=== PATIENT | female | born 1955 | race Caucasian/White ===

== ENCOUNTER 2021-09-21 11:50 | Outpatient (CLI) | payer OTHER, SELFPAY ==
[2021-09-21 19:10] LABS: Hematocrit 42.2 % (37.0-47.0); Hemoglobin 13.6 g/dL (12.0-15.0); Mean Corpuscular HGB Conc 32.2 g/dl (32-36); Mean Corpuscular Hemoglobin 31.9 pg (26-34); Mean Corpuscular Volume 99.1 fl (80-100); Mean Platelet Volume 10.5 fl (7.4-10.4); Platelet Count Result 219 k/mm3 (150-375); Red Blood Count 4.26 M/mm3 (4.2-5.4); Red Cell Distribution Width 12.7 % (11.5-14.5); White Blood Count 8.4 K/mm3 (4.5-10.0)
[2021-09-21 19:20] LABS: Alanine Aminotransferase 20 U/L (6-35); Alkaline Phosphatase 87 U/L (38-126); Anion Gap 7 mmol/L (8-16); Aspartate Amino Transferase 49 U/L (14-36); Bilirubin,Total 0.8 mg/dL (0.2-1.3); Blood Urea Nitrogen 12 mg/dL (7-17); Calcium 9.6 mg/dL (8.4-10.2); Carbon Dioxide 27 mmol/L (22-30); Chloride 103 mmol/L (98-107); Cholesterol 120 mg/dL (0-200); Estimated Glomerular Filt Rate > 60; Glucose 131 mg/dL (65-110); HDL Direct 33 mg/dL; Potassium 4.3 mmol/L (3.4-5.0); Sodium 137 mmol/L (137-145); Triglycerides 140 mg/dL (<150)
[2021-09-21 19:31] LABS: LDL Cholesterol Direct 54 mg/dL
[2021-09-21 19:35] LABS: NT Pro B Type Natriuretic Pept 1970 pg/mL (5-100)
[2021-09-21 19:56] LABS: Thyroid Stimulating Hormone 0.382 uIU/mL (0.465-4.680)
== END 2021-09-21 11:51 | disposition home or self-care (01) ==
PROVIDERS: PCP Family Medicine; Visit Provider Family Medicine
DX: Z00.00 Encounter for general adult medical examination without abnormal findings (principal); E03.9 Hypothyroidism, unspecified; I25.10 Atherosclerotic heart disease of native coronary artery without angina pectoris; I25.2 Old myocardial infarction; I50.9 Heart failure, unspecified; K21.9 Gastro-esophageal reflux disease without esophagitis; I10 Essential (primary) hypertension; K58.9 Irritable bowel syndrome, unspecified
CPT/HCPCS: 36415; 80053; 80061; 83880; 84443; 85027

== ENCOUNTER 2021-10-10 09:30 | Outpatient (CLI) | payer OTHER, SELFPAY ==
[2021-10-10 19:49] LABS: NT Pro B Type Natriuretic Pept 1050 pg/mL (5-100)
[2021-10-10 20:26] LABS: Free T4 Free Thyroxine 1.22 ng/mL (0.78-2.19)
[2021-10-10 20:57] LABS: Hemoglobin A1C 6.3 % (<5.7)
[2021-10-12 20:22] LABS: Triiodothyronine T3 Free 2.6 pg/mL (2.3-4.2)
== END 2021-10-10 09:31 | disposition home or self-care (01) ==
PROVIDERS: PCP Family Medicine; Visit Provider Family Medicine
DX: E03.9 Hypothyroidism, unspecified (principal); R73.09 Other abnormal glucose; I50.9 Heart failure, unspecified
CPT/HCPCS: 36415; 83036; 83880; 84439; 84443; 84481

== ENCOUNTER 2021-11-25 08:05 | Outpatient (CLI) | payer OTHER, SELFPAY ==
--- NOTE | 2021-11-25 08:19 | ECHO_ITS ---
Patient Info Name: Shakira Starr Age: 66 years : 1955 Gender: Female Ht: 62 in Wt: 224 lbs BSA: 2.16 m2 HR: 96 bpm BP: 143 / 93 mmHg Heart Rhythm: Sinus Rhythm Technical Quality: Fair Exam Date: 11/25/2021 9:26 AM Exam Location: [facility] Patient Status: Outpatient Admit Date: 11/25/2021 Staff Ordering Physician: Milo Avalos DO Molasses And Caramel Operator: Frannie Bonilla RDCS Attending Provider: Sahil Hinds MD Exam Type: CA echo doppler color flow Study Info Indications Z95.2 - Presence of prosthetic heart valve Complete two-dimensional, color flow and Doppler transthoracic echocardiogram is performed. Summary 1. Complete two-dimensional, color flow and Doppler transthoracic echocardiogram is performed. 2. Left ventricular chamber dimension is moderately enlarged. 3. Anteroseptal/anterior kamara are severely hypokinetic compared to other wall segments. 4. There is mildly increased left ventricular wall thickness. 5. Left ventricular systolic function is globally severely reduced, estimated at 30-35%. 6. The left ventricular diastolic function is grade I diastolic dysfunction. 7. E/e' 10 is mildly elevated. 8. Right ventricular systolic function is reduced based on abnormal TAPSE 0.9 cm. 9. The bioprosthetic aortic valve is not well visualized. 10. 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 The dimensionless index is 0.25, right at threshold for severe aortic stenosis. Consider PRINCE for further evaluation if clinically indicated. Left Ventricle E/e' 10 is mildly elevated. Left ventricular systolic function is globally severely reduced, estimated at 30-35%. Anteroseptal/anterior kamara are severely hypokinetic compared to other wall segments. Left ventricular chamber dimension is moderately enlarged. There is mildly increased left ventricular wall thickness. The left ventricular diastolic function is grade I diastolic dysfunction. Right Ventricle Right ventricular systolic function is reduced based on abnormal TAPSE 0.9 cm. Right ventricular chamber dimension is not well visualized. Left Atria Left atrial chamber dimension is normal. Right Atria Right atrial chamber dimension is normal. 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 The dimensionless index is 0.25, right at threshold for severe aortic stenosis. Consider PRINCE for further evaluation if clinically indicated. The bioprosthetic aortic valve is not well visualized. There is no regurgitation of the bioprosthetic aortic valve. Pulmonic Valve There is no pulmonic regurgitation. Mitral Valve There is no mitral valve stenosis. There is no mitral valve regurgitation. Tricuspid Valve There is no tricuspid valve regurgitation. Pericardium/Pleural There is no pericardial effusion. Inferior Vena Cava Normal inferior vena cava with >50% collapse upon inspiration consistent with normal right atrial pressure, 5 mmHg. Aorta The aortic root size at the sinus of Valsalva is normal. Left Ventricular Outflow Tract Name Value Normal LVOT 2D
--- NOTE | 2021-11-25 11:57 | WPDPFTINT ---
PFT Procedure Performed PFT Procedure Performed Spirometry with Pre/Post Bronchodilator Diffusing Cap (DLCO) Flow Vol Loop PFT Interpretation Lung volumes were not measure as patient could not perform the maneuver. Spirometry showed normal expiratory flow rates and a normal FEV1 to FVC ratio of 80%. Following administration of a bronchodilator there was significant increase in the FEV1. Lung diffusion capacity is within the normal range at 81% predicted. The flow volume loop is unremarkable. Impression: Spirometry, lung diffusion capacity within normal range
== END 2021-11-25 08:06 | disposition home or self-care (01) ==
PROVIDERS: PCP Family Medicine; Visit Provider Internal Medicine Pulmonary Disease
DX: R05.9 Cough, unspecified (principal); Z95.2 Presence of prosthetic heart valve
CPT/HCPCS: 93306; 94060; 94726; 94729

== ENCOUNTER 2022-01-10 11:56 | Outpatient (CLI) | payer OTHER, SELFPAY ==
--- NOTE | ~2022-01-10 | XR_ITS ---
XR sternum min 2V 01/10/2022 12:21 Indication: Chest pain since open heart surgery Procedure: 2 views of the sternum Comparison: No prior studies for comparison. Findings: There are median sternotomy wires for CABG. The inferior wire is fractured. Cardiomegaly. T here is demineralization. No acute sternal fracture is definitely seen, although evaluation limited d ue to demineralization. Impression: 1: No acute sternal fracture. Fractured inferior sternal wire. Reviewed, dictated and finalized at location B. Impression: 1: No acute sternal fracture. Fractured inferior sternal wire.
--- NOTE | ~2022-01-10 | XR_ITS ---
[XR_RIBSBI_CR ] INDICATION: Bilateral rib pain TECHNIQUE: Frontal projection of the upper ribs, frontal projection of the lower ribs, oblique projec tion of all the ribs, frontal inspiratory chest x-ray for interpretation. FINDINGS: There are no displaced rib fractures identified. There are no soft tissue abnormality see n. The lungs are clear. There are scattered calcified granulomas of the lungs. IMPRESSION: 1:No acute displaced rib fractures. Reviewed, dictated and finalized at location B.
== END 2022-01-10 11:57 | disposition home or self-care (01) ==
LOC: ANHBWCIMG 11:57
PROVIDERS: PCP Family Medicine; Visit Provider Family Medicine
DX: R07.89 Other chest pain (principal); T85.898A Other specified complication of other internal prosthetic devices, implants and grafts, initial encounter
CPT/HCPCS: 71110; 71120

== ENCOUNTER 2022-01-28 11:11 | Outpatient (CLI) | payer OTHER, SELFPAY ==
--- NOTE | ~2022-01-28 | CT_ITS ---
EXAMINATION: CT diagnostic chest wo con DATE: 01/28/2022 11:30 INDICATION: Chest pain TECHNIQUE: Computed tomography (CT) of the chest was performed without intravenous contrast. Automate d exposure control and iterative reconstruction technique were employed. Exam dose: 516.51 mGy-cm to vinny exam DLP. COMPARISON: None FINDINGS: Status post sternotomy and aortic valve replacement. Normal heart size. Coronary artery calcifications. There is thoracic aortic and great vessel calcification. No thoracic aortic aneurysm. No hilar or mediastinal mass lesion or lymphadenopathy. No pulmonary infiltrate or consolidation or pulmonary mass lesion. Normal morphology of the adrenal glands. Diffuse idiopathic skeletal hyperostosis of the thoracic spine. IMPRESSION: Status post aortic valve replacement Reviewed, dictated and finalized at Location A. Reviewed, dictated and finalized at location A. R RECONNAISSANCE SPECIALIST
== END 2022-01-28 11:12 | disposition home or self-care (01) ==
PROVIDERS: PCP Family Medicine; Visit Provider Family Medicine
DX: R07.89 Other chest pain (principal); Z95.2 Presence of prosthetic heart valve
CPT/HCPCS: 71250

== ENCOUNTER 2022-04-12 14:36 | Outpatient (CLI) | payer MEDICARE, SELFPAY ==
[2022-04-12 19:10] LABS: Alanine Aminotransferase 27 U/L (6-35); Albumin Level 4.1 g/dL (3.5-5.1); Alkaline Phosphatase 74 U/L (38-126); Anion Gap 7 mmol/L (8-16); Aspartate Amino Transferase 33 U/L (14-36); Bilirubin,Total 0.9 mg/dL (0.2-1.3); Blood Urea Nitrogen 12 mg/dL (7-17); Calcium 9.5 mg/dL (8.4-10.2); Carbon Dioxide 30 mmol/L (22-30); Chloride 101 mmol/L (98-107); Estimated Glomerular Filt Rate > 60; Glucose 117 mg/dL (65-110); Potassium 4.1 mmol/L (3.4-5.0); Sodium 138 mmol/L (137-145)
[2022-04-12 19:32] LABS: Hemoglobin A1C 6.7 % (<5.7)
== END 2022-04-12 14:37 | disposition home or self-care (01) ==
PROVIDERS: PCP Family Medicine; Visit Provider Family Medicine
DX: R73.03 Prediabetes (principal)
CPT/HCPCS: 36415; 80053; 83036

== ENCOUNTER 2022-06-09 02:30 | Day surgery (SDC) | payer MEDICARE, SELFPAY ==
[2022-06-08 12:50] VITALS: BMI 40.6
[2022-06-09] VITALS (11 sets, daily range): BP systolic 114–170; BP diastolic 59–89; PULSE 75–91; RESP 12–20; TEMP 36.9; O2SAT 95–100; BMI 42.6
--- NOTE | 2022-06-09 | ECHO_ITS ---
Patient Info Name: Shakira Starr Age: 66 years : 1955 Gender: Female Ht: 62 in Wt: 222 lbs BSA: 2.15 m2 HR: 103 bpm BP: 153 / 89 mmHg Technical Quality: Good Exam Date: 06/09/2022 9:21 AM Exam Location: [facility] Exam Room: [facility] Patient Status: Outpatient Admit Date: 06/09/2022 Staff Ordering Physician: Milo Avalos DO Last Putter Away: Jamila De Souza RDCS Attending Provider: Milo Avalos DO Referring Physician: Robbie BENNETT; Exam Type: CA echo transesophageal Study Info Indications - HX/O CAD AORTIC VALVE REPLACEMENT Complete two-dimensional, color flow and Doppler transesophageal echocardiogram is performed with contrast to opacify the left ventrical and to improve the deliniation of the left ventrical endocarial boarders. Procedure Details Risks/benefits/alternative to PRINCE discuss with patient and she is agreeable to procedure. She is monitored electrocardiographically, vitals which showed sinus rhythm, HR 70 bpm, BP 135/70 mmHg, >95% pulse ox. Cetacaine spray x 2 to posterior oropharynx. Versed 2 mg and Fenanyl 50 mcg IV given for conscious sedation. PRINCE advanced and she swallowed probe without incident. Multiple images obtained at various levels in esophagus. Agitated saline injection x 1. PRINCE probe withdrawn and no bleed noted on probe tip. No complications. Patient tolerated procedure well. Summary 1. Transesophageal echocardiogram. 2. Left ventricular systolic function is severely globally reduced with an ejection fraction of 25-30% by visual estimation. 3. The left ventricular diastolic function is indeterminate as it was not assessed. 4. Left ventricular chamber dimension is severely enlarged. 5. Right ventricular systolic function is reduced. 6. Left atrial chamber dimension is moderately enlarged. 7. There is severe bioprosthetic aortic valve stenosis by planimetry of valve area 0.6-0.8 cm2. Valve opening and closing appears normal without any obstruction. There is turbulent flow suggestive of patient-valve mismatch. 8. There is moderate mitral valve regurgitation. 9. There is mild tricuspid valve regurgitation. Left Ventricle Left ventricular systolic function is severely globally reduced with an ejection fraction of 25-30% by visual estimation. The left ventricular diastolic function is indeterminate as it was not assessed. Left ventricular chamber dimension is severely enlarged. Right Ventricle Right ventricular chamber dimension is normal. Right ventricular systolic function is reduced. Left Atria Left atrial chamber dimension is moderately enlarged. Right Atria Right atrial chamber dimension is normal. Atrial Appendage There is no thrombus visualized in the left atrial appendage. 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 Valve opening and closing appears normal without any obstruction. There is turbulent flow suggestive of patient-valve mismatch. There is no regurgitation of the bioprosthetic aortic valve. Pulmonic Valve There is no pulmonic regurgitation. Mitral Valve There is no mitral valve stenosis. There is moderate mitral valve regurgitation. Tricuspid Valve RVSP is not measured. There is mild tricuspid valve regurgitation. Pericardium/Pleural There is no pericardial effusion. Inferior Vena Cava Inferior vena cava is not well visualized. Aorta The aortic root size at the sinus of Valsalva is normal. Report Signatures Electronically si
[2022-06-09] MEDS: SODIUM CHLORIDE 0.9% IV 1,000 ML 30 ML IV CONT (08:45)
== END 2022-06-09 11:05 | disposition home or self-care (01) ==
PROVIDERS: PCP Family Medicine; Visit Provider Internal Medicine Cardiovascular Disease
PROC: (CPT 93312; principal; 2022-06-09 09:00)
DX: T82.857A Stenosis of other cardiac prosthetic devices, implants and grafts, initial encounter (principal); Y83.8 Other surgical procedures as the cause of abnormal reaction of the patient, or of later complication, without mention of misadventure at the time of the procedure; I34.0 Nonrheumatic mitral (valve) insufficiency; I36.1 Nonrheumatic tricuspid (valve) insufficiency; I25.810 Atherosclerosis of coronary artery bypass graft(s) without angina pectoris; Z95.1 Presence of aortocoronary bypass graft; Z95.2 Presence of prosthetic heart valve; I11.9 Hypertensive heart disease without heart failure; G47.10 Hypersomnia, unspecified
CPT/HCPCS: 93312; 93320; 93325; J2250; J3010; J7030

== ENCOUNTER 2022-07-31 15:18 | Outpatient (CLI) | payer MEDICARE, SELFPAY ==
[2022-07-31 23:39] LABS: Hemoglobin A1C 6.5 % (<5.7)
== END 2022-07-31 15:19 | disposition home or self-care (01) ==
PROVIDERS: PCP Family Medicine; Visit Provider Family Medicine
DX: E11.9 Type 2 diabetes mellitus without complications (principal)
CPT/HCPCS: 36415; 83036

== ENCOUNTER 2022-08-02 01:02 | Day surgery (SDC) | payer MEDICARE, SELFPAY ==
[2022-06-30 16:09] VITALS: BMI 38.9
[2022-08-01 14:50] VITALS: BMI 40.3
[2022-08-02] VITALS (8 sets, daily range): BP systolic 105–146; BP diastolic 68–96; PULSE 76–89; RESP 16–23; TEMP 37.1; O2SAT 97–100; BMI 41.3
[2022-08-02 07:26] LABS: Basophils Absolute Auto 0.1 K/mm3 (0.0-0.1); Basophils Percent Auto 0.7 % (0.2-1.2); Eosinophils Absolute Auto 0.3 K/mm3 (0-0.3); Eosinophils Percent Auto 2.9 % (0-4.4); Hematocrit 39.1 % (37.0-47.0); Hemoglobin 13.2 g/dL (12.0-15.0); Immature Granulocyte Absolute 0.02 K/mm3 (0.00-0.031); Immature Granulocyte Percent A 0.2 % (0-0.5); Lymphocytes Absolute Auto 2.41 K/mm3 (0.9-3.2); Lymphocytes Percent Auto 26.7 % (18.3-44.2); Mean Corpuscular HGB Conc 33.8 g/dl (32-36); Mean Corpuscular Hemoglobin 32.8 pg (26-34); Mean Corpuscular Volume 97.3 fl (80-100); Mean Platelet Volume 9.8 fl (7.4-10.4); Monocytes Absolute Auto 0.7 K/mm3 (0.1-0.6); Monocytes Percent Auto 7.5 % (2.6-8.5); Neutrophils Absolute Auto 5.6 K/mm3 (1.3-6.7); Platelet Count Result 191 k/mm3 (150-375); Red Blood Count 4.02 M/mm3 (4.2-5.4)
[2022-08-02 07:37] LABS: Anion Gap 7 mmol/L (8-16); Blood Urea Nitrogen 12 mg/dL (7-17); Calcium 9.3 mg/dL (8.4-10.2); Carbon Dioxide 32 mmol/L (22-30); Chloride 100 mmol/L (98-107); Estimated CRCL calculation 76 ml/min; Estimated Glomerular Filt Rate > 60; Glucose 151 mg/dL (65-110); Potassium 3.7 mmol/L (3.4-5.0); Sodium 139 mmol/L (137-145)
--- NOTE | 2022-08-02 10:09 | PM.IMHP ---
H&P: HPI History of Present Illness Date/Time: 08/02/22 10:09 Chief Complaint: Cardiac Cath Narrative: Patient presents today for elective outpatient LHC and RHC. She has a history of a complicated hospital course in May 2021 with NSTEMI, cardiogenic shock, had CABG and AVR which did not accept St. Abel mechanical valve in operation and changed to bioprosthetic valve,? intubated, then trached and PEG (both discontinued), DM, hypertension.She can walk less than 1 block prior to RAMIREZ. Has a lot of chest pains mainly with coughing and taking a deep breath in. She does feel and hear a grinding sensation in her mid chest when taking deep breaths. Admits to snoring, not sleeping well and daytime sleepiness. Denies orthopnea, PND, edema, dizziness, palpitations. 06/05/21 [facility] in [place], [place]: CABG x 2 vessels with MARTE to LAD and SVG to RCA and AVR with bioprosthetic valve. 06/01/21 [facility] cath: LAD mid 80%, RCA 70% prox and JIG BORE OPERATOR in distal portion, small diffuse disease in LCx with 70% ostial and OM3 with 70% stenosis. Echo shows severe probably related to patient-valve mismatch. Patient is undergoing CT Surgery evaluation with Dr. 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 Review of Systems Review of Systems: All systems reviewed & are unremarkable except as noted in HPI and below (HPI) [facility] Past Medical History Medical History Anxiety Heart attack Heart disease History of thyroid disorder Surgical History Surgical History History of open heart surgery Family History Family History Mother Pancreatic cancer Depression Anxiety Daughter Ovarian cancer Hypertension Other Diabetes mellitus Father Hypertension Heart disease Disorder of thyroid Social History Social History Smoking status: Never smoker Second hand tobacco smoke exposure: No Alcohol intake: never Drinks per week: 1 Substance use: never Substance use type: does not use Lack of Transportation: No Lack of Food: Never True Current Housing: I Have Housing Concerned About Future Housing: No Difficulty Paying Gas/Electric Bills: No Difficulty Paying for Meds: No Currently Unemployed: No Education: Trade/Vocational Certificate Difficulty w/ Childcare or Family Care: No Living arrangements: with family Additional occupation/education comments: Retired Gender identity (if verbalized by the patient): Female Spiritual care concerns: No Agree to blood products: Yes Meds Home Medications and Allergies Home Medications Medication Instructions Recorded Confirmed Type atorvastatin 40 mg tablet 40 mg PO DAILY #90 tabs 03/28/22 06/30/22 Rx gabapentin 300 mg capsule 300 mg PO QHS #90 caps 03/28/22 06/30/22 Rx metformin 500 mg tablet,extended 500 mg PO DAILY #90 tabs 03/28/22 06/30/22 Rx release 24 hr levothyroxine 100 mcg capsule 100 mcg PO DAILY #90 caps 03/29/22 06/30/22 Rx pantoprazole 40 mg tablet,delayed 40 mg PO QAM #90 tabs 04/03/22 06/30/22 Rx release carvedilol 3.125 mg tablet 3.125 mg PO BID 06/08/22 08/02/22 History montelukast 10 mg tablet 10 mg PO DAILY 06/08/22 06/30/22 History azelastine 137 mcg (0.1 %) nasal 1 spray intranasal Q12H #30 mL 06/15/22 06/30/22 Rx spray aerosol sacubitril 24 mg-valsartan 26 mg See Rx Instructions .Route 06/19/22 08/02/22 Rx tablet (Entresto) .COMPLEX #60 tabs fluoxetine 20 mg capsule (Prozac) 20 mg PO DAILY #90 caps 07/05/22 08/01/22 Rx furosemide 20 mg tablet 20 mg PO DAILY #90 tabs 07/05/22 08/01/22 Rx Allergies Allergy/AdvReac Type Severity Reaction Status Date / Time steroids AdvReac Severe Hives Uncoded 06/30/22 16:26 Vital Signs Vital Signs - 24 hr 08/02/22 07:15 Temperature 37.1 C Pul
--- NOTE | 2022-08-02 10:13 | WPDMODSED ---
Moderate Sedation Note-Pt Data Patient Data Diagnosis: Severe bioprosthetic aortic valve stenosis, PPM Present Complaint: Severe bioprosthetic aortic valve stenosis, PPM Procedure to be performed/Plan: Coronary angiography, bypass graft angiography, LHC, RHC +/- PCI Allergies Allergy/AdvReac Type Severity Reaction Status Date / Time steroids AdvReac Severe Hives Uncoded 06/30/22 16:26 Home Medications Medication Instructions Recorded Confirmed Type atorvastatin 40 mg tablet 40 mg PO DAILY #90 tabs 03/28/22 06/30/22 Rx gabapentin 300 mg capsule 300 mg PO QHS #90 caps 03/28/22 06/30/22 Rx metformin 500 mg tablet,extended 500 mg PO DAILY #90 tabs 03/28/22 06/30/22 Rx release 24 hr levothyroxine 100 mcg capsule 100 mcg PO DAILY #90 caps 03/29/22 06/30/22 Rx pantoprazole 40 mg tablet,delayed 40 mg PO QAM #90 tabs 04/03/22 06/30/22 Rx release carvedilol 3.125 mg tablet 3.125 mg PO BID 06/08/22 08/02/22 History montelukast 10 mg tablet 10 mg PO DAILY 06/08/22 06/30/22 History azelastine 137 mcg (0.1 %) nasal 1 spray intranasal Q12H #30 mL 06/15/22 06/30/22 Rx spray aerosol sacubitril 24 mg-valsartan 26 mg See Rx Instructions .Route 06/19/22 08/02/22 Rx tablet (Entresto) .COMPLEX #60 tabs fluoxetine 20 mg capsule (Prozac) 20 mg PO DAILY #90 caps 07/05/22 08/01/22 Rx furosemide 20 mg tablet 20 mg PO DAILY #90 tabs 07/05/22 08/01/22 Rx Current Medications: Active Medications Sodium Chloride (Normal Saline Iv) 500 mls @ 100 mls/hr IV CONT .Q5H UMER Sedation/Anesthesia: No previous sedation/anesthesia problems (including family history). [facility] Past Medical History Medical History Anxiety Heart attack Heart disease History of thyroid disorder Surgical History Surgical History History of open heart surgery Family History Family History Mother Pancreatic cancer Depression Anxiety Daughter Ovarian cancer Hypertension Other Diabetes mellitus Father Hypertension Heart disease Disorder of thyroid Social History Social History Smoking status: Never smoker Second hand tobacco smoke exposure: No Alcohol intake: never Drinks per week: 1 Substance use: never Substance use type: does not use Lack of Transportation: No Lack of Food: Never True Current Housing: I Have Housing Concerned About Future Housing: No Difficulty Paying Gas/Electric Bills: No Difficulty Paying for Meds: No Currently Unemployed: No Education: Trade/Vocational Certificate Difficulty w/ Childcare or Family Care: No Living arrangements: with family Additional occupation/education comments: Retired Gender identity (if verbalized by the patient): Female Spiritual care concerns: No Agree to blood products: Yes Mod Sed Physical Exam Physical Exam Pre Procedural Exam: Normal: Appearance, Lungs, Heart Rate, Heart Rhythm, Neuro Exam, Abdomen, Extremities and Skin Hours since solid foods: 12 Hours since liquid intake: 8 Mallampati Classification: class III Internal Medicine - PN: Obj Da Vital Signs Vital Signs: Vital Signs - 24 hr 08/02/22 07:15 Temperature 37.1 C Pulse Rate 89 Respiratory Rate 18 Blood Pressure 144/75 H Pulse Oximetry 99 Oxygen Delivery Room Air Meds/Results Medications: Active Medications Generic Name Dose Route Start Last Admin Trade Name Freq PRN Reason Stop Dose Admin Sodium Chloride 500 mls @ 100 mls/hr 08/02/22 07:00 Normal Saline Iv IV CONT .Q5H UMER Labs 08/02/22 07:13 08/02/22 07:13 Labs: Laboratory Results - last 24 hr 08/02/22 07:13 WBC 9.0 RBC 4.02 L Hgb 13.2 Hct 39.1 MCV 97.3 MCH 32.8 MCHC 33.8 RDW 13.0 Plt Count 191 MPV 9.8 Immature Gran % (Auto) 0.2
--- NOTE | 2022-08-02 10:15 | WPDCARDPROC ---
Cardiac Cath Procedure Note Date of procedure:: 08/02/22 Performing physician:: CATHETERIZATION LABORATORY REPORT Procedure Date: 08/02/2022 Manager Title: Josue Arellano M.D., [facility]? Referring Physician: Dr. Avalos ? Anesthesia: Versed and Fentanyl were ordered and given in my presence at 08:42, procedure ended at 10:04. Supervision of nurse monitored moderate sedation with Versed and Fentanyl was provided for 82 minutes. Total of Versed 1mg and Fentanyl 50mcg were administered by the Dietitian Chief RN Mildred Kyle. Pre-op Diagnosis: Coronary artery disease s/p CABG Post-op Diagnosis: 1. Severe [place] multivessel coronary artery disease 2. Patent MARTE to LAD bypass graft 3. Patent SVG to RPDA bypass graft 4. Normal right heart filling pressures 5. Elevated left ventricular end-diastolic pressure of 26mmHg 6. Cardiac index 2.4 by Nida 7. Cardiac output 4.8 by Nida Angiogram pictures were transferred onto [employer]. Patient also given a CD of images. Procedure(s): 1. Moderate sedation 2. Ultrasound-guided access of the right common femoral artery and right femoral vein 3. Right heart cath 4. Coronary angiography 5. Left heart cath 6. Bypass graft angiography 7. Angioseal closure of the right common femoral artery Access Site: Right common femoral artery Right femoral vein Brief History and Clinical Indications: Patient has a history of a complicated hospital course in May 2021 with NSTEMI, cardiogenic shock, had CABG and AVR which did not accept St. Abel mechanical valve in operation and changed to bioprosthetic valve,? intubated, then trached and PEG (both discontinued), DM, hypertension. She can walk less than 1 block prior to RAMIREZ. Has a lot of chest pains mainly with coughing and taking a deep breath in. She does feel and hear a grinding sensation in her mid chest when taking deep breaths. Admits to snoring, not sleeping well and daytime sleepiness. Denies orthopnea, PND, edema, dizziness, palpitations. Echo shows severe probably related to patient-valve mismatch. 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 Therefore, patient referrred for LHC and RHC. All risks, benefits and alternatives to left heart catheterization with or without percutaneous coronary intervention and right heart cath was discussed at length with the patient. Risk of complications including but not limited to bleeding, infection, arrhythmia, stroke, worsening kidney function, blood loss, groin hematoma, limb loss, emergency coronary artery bypass grafting, and even were discussed with the patient and all questions were answered. The patient understood and wished to proceed. Time out called, patient name, date of , medical record number, allergies, procedure performed, identify Manager Title, patient and staff member concurred with accurate data, procedure carried on. Findings: LEFT HEART CATHETERIZATION FINDINGS: 1. Left main: The left main coronary artery is patent without any significant obstructive disease. The left main trifurcates into LAD, Ramus, and LCX. 2. Left anterior descending: The LAD is SECOND HELPER immediately after the bifurcation of the first diagonal branch. The first diagonal branch is a large caliber vessel with an 80% stenosis in its proximal-mid portion. 3. Ramus: Ramus is a large caliber vessel without any significant obstructive disease. 4. Left circumflex: The ostium of the left circumflex artery has a 70-80% stenosis. The proximal and mid portion with luminal irregularities. OM-1 is a very small caliber and short branch. OM-2 is a small caliber branch without obstructive disease. The OM-3 branch has 70% stenosis in its proximal portion. 5. Right coronary artery: The RCA is the dominant vessel. The proximal portion of the RCA has moderate disease. The mid portion has mild diffuse disease. The RCA is SECOND HELPER in its distal portion. 6. Left ventricle: A. En
== END 2022-08-02 13:12 | disposition home or self-care (01) ==
PROVIDERS: Internal Medicine; PCP Family Medicine; Visit Provider Specialist
PROC: 4A023N8 Measurement of Cardiac Sampling and Pressure, Bilateral, Percutaneous Approach (ICD-10-PCS; CPT 93461; principal; 2022-08-02 08:30)
DX: I25.10 Atherosclerotic heart disease of native coronary artery without angina pectoris (principal); R07.9 Chest pain, unspecified; E11.9 Type 2 diabetes mellitus without complications; I10 Essential (primary) hypertension; Z95.2 Presence of prosthetic heart valve
CPT/HCPCS: 36415; 80048; 85025; 93461; A9270; C1760; C1769; C1887; C1894; G0269; J1644; J2250; J3010; J7040

== ENCOUNTER 2022-08-15 14:02 | Outpatient (CLI) | payer MEDICARE, SELFPAY ==
[2022-08-15 19:51] LABS: INR 1.2; Prothrombin Time 15.5 Seconds (11.1-14.7)
== END 2022-08-15 14:03 | disposition home or self-care (01) ==
PROVIDERS: PCP Family Medicine; Visit Provider Internal Medicine Cardiovascular Disease
DX: I35.8 Other nonrheumatic aortic valve disorders (principal)
CPT/HCPCS: 36415; 85610

== ENCOUNTER 2022-08-28 13:24 | Outpatient (CLI) | payer MEDICARE, SELFPAY ==
[2022-08-28 19:16] LABS: Prothrombin Time 42.4 Seconds (11.1-14.7)
== END 2022-08-28 13:25 | disposition home or self-care (01) ==
PROVIDERS: PCP Family Medicine; Visit Provider Internal Medicine Cardiovascular Disease
DX: I35.8 Other nonrheumatic aortic valve disorders (principal)
CPT/HCPCS: 36415; 85610

== ENCOUNTER 2022-09-06 10:37 | Outpatient (CLI) | payer MEDICARE, SELFPAY ==
[2022-09-06 20:02] LABS: INR 2.8; Prothrombin Time 31.8 Seconds (11.1-14.7)
== END 2022-09-06 10:38 | disposition home or self-care (01) ==
LOC: ANHBWCLAB 10:37
PROVIDERS: PCP Family Medicine; Visit Provider Internal Medicine Cardiovascular Disease
DX: Z95.2 Presence of prosthetic heart valve (principal)
CPT/HCPCS: 36415; 85610

== ENCOUNTER 2022-09-26 09:33 | Outpatient (CLI) | payer MEDICARE, SELFPAY ==
[2022-09-26 19:53] LABS: INR 1.7
== END 2022-09-26 09:34 | disposition home or self-care (01) ==
PROVIDERS: PCP Family Medicine; Visit Provider Internal Medicine Cardiovascular Disease
DX: Z95.2 Presence of prosthetic heart valve (principal)
CPT/HCPCS: 36415; 85610

== ENCOUNTER 2023-01-11 14:12 | Outpatient (CLI) | payer MEDICARE, SELFPAY ==
[2023-01-11 21:28] LABS: Appearance Urine Cloudy (Clear); Bacteria Urine 4+ /hpf; Bilirubin Urine Negative (Negative); Blood Urine Negative (Negative); Color Urine Dark Yellow (Yellow); Glucose Urine UA Negative (Negative); Hyaline Casts Urine Present /lpf; Ketones Urine Negative (Negative); Leukocyte Esterase Ur 2+ LEU/UL (NEGATIVE); Nitrate Urine Positive (Negative); Protein Urine Negative (Negative); Specific Grav Ur 1.012 (1.001-1.035); Squamous Epithelial Cell Urine Moderate /hpf (Few); Urobilinogen Urine 0.2 mg/dL (<2.0); WBC Urine 21-50 /hpf (0-3)
[2023-01-11 21:31] LABS: Add Urine Microscopic? YES
== END 2023-01-11 14:13 | disposition home or self-care (01) ==
PROVIDERS: PCP Family Medicine; Visit Provider Nurse Practitioner Family
DX: R30.0 Dysuria (principal)
CPT/HCPCS: 81001; 87077; 87086; 87186

== ENCOUNTER 2023-02-01 12:49 | Outpatient (CLI) | payer MEDICARE, SELFPAY ==
[2023-02-01 19:18] LABS: Alanine Aminotransferase 26 U/L (6-35); Albumin Level 4.3 g/dL (3.5-5.1); Alkaline Phosphatase 74 U/L (38-126); Anion Gap 13 mmol/L (8-16); Aspartate Amino Transferase 48 U/L (14-36); Bilirubin,Total 0.9 mg/dL (0.2-1.3); Blood Urea Nitrogen 12 mg/dL (7-17); Calcium 9.3 mg/dL (8.4-10.2); Carbon Dioxide 26 mmol/L (22-30); Chloride 101 mmol/L (98-107); Estimated Glomerular Filt Rate > 60; Glucose 96 mg/dL (65-110); Potassium 3.4 mmol/L (3.4-5.0); Sodium 140 mmol/L (137-145)
[2023-02-01 19:36] LABS: Creatinine Urine 21.5 mg/dL
[2023-02-01 19:45] LABS: Microalbumin Urine Random < 6.0 mg/L (0-16.7)
[2023-02-01 21:04] LABS: Hemoglobin A1C 5.4 % (<5.7)
== END 2023-02-01 12:50 | disposition home or self-care (01) ==
PROVIDERS: PCP Family Medicine; Visit Provider Family Medicine
DX: E11.9 Type 2 diabetes mellitus without complications (principal); E03.9 Hypothyroidism, unspecified; G47.33 Obstructive sleep apnea (adult) (pediatric); I10 Essential (primary) hypertension; I25.10 Atherosclerotic heart disease of native coronary artery without angina pectoris; I25.2 Old myocardial infarction; I25.810 Atherosclerosis of coronary artery bypass graft(s) without angina pectoris; I50.9 Heart failure, unspecified; K21.9 Gastro-esophageal reflux disease without esophagitis; K58.9 Irritable bowel syndrome, unspecified; Z95.2 Presence of prosthetic heart valve
CPT/HCPCS: 36415; 80053; 82043; 83036; 84443

== ENCOUNTER 2023-03-06 13:58 | Outpatient (CLI) | payer MEDICARE, SELFPAY ==
[2023-03-06 20:05] LABS: Prothrombin Time 54.7 Seconds (11.1-14.7)
[2023-03-06 21:24] LABS: INR 5.5
== END 2023-03-06 13:59 | disposition home or self-care (01) ==
PROVIDERS: Internal Medicine Cardiovascular Disease; PCP Nurse Practitioner Adult Health; Visit Provider Nurse Practitioner Adult Health
DX: Z95.2 Presence of prosthetic heart valve (principal); E03.9 Hypothyroidism, unspecified; R79.89 Other specified abnormal findings of blood chemistry
CPT/HCPCS: 36415; 84443; 85610

== ENCOUNTER 2023-03-09 09:18 | Outpatient (CLI) | payer MEDICARE, SELFPAY ==
[2023-03-09 09:54] LABS: INR 2.3; Prothrombin Time 26.4 Seconds (11.1-14.7)
== END 2023-03-09 09:19 | disposition home or self-care (01) ==
PROVIDERS: PCP Family Medicine; Visit Provider Internal Medicine Cardiovascular Disease
DX: Z51.81 Encounter for therapeutic drug level monitoring (principal); Z79.899 Other long term (current) drug therapy
CPT/HCPCS: 36415; 85610

== ENCOUNTER 2023-03-15 13:34 | Outpatient (CLI) | payer MEDICARE, SELFPAY | END 2023-03-15 13:35 | disposition home or self-care (01) | PROVIDERS: PCP Family Medicine; Visit Provider Nurse Practitioner Adult Health | DX: E03.9 Hypothyroidism, unspecified (principal) | CPT/HCPCS: 36415; 84443 ==

== ENCOUNTER 2023-03-22 12:47 | Outpatient (CLI) | payer MEDICARE, SELFPAY ==
[2023-03-22 18:59] LABS: INR 2.6; Prothrombin Time 30.1 Seconds (11.1-14.7)
== END 2023-03-22 12:48 | disposition home or self-care (01) ==
PROVIDERS: PCP Family Medicine; Visit Provider Internal Medicine Cardiovascular Disease
DX: I35.8 Other nonrheumatic aortic valve disorders (principal)
CPT/HCPCS: 36415; 85610

== ENCOUNTER 2023-04-10 12:27 | Outpatient (CLI) | payer MEDICARE, SELFPAY ==
[2023-04-10 19:06] LABS: INR 2.9; Prothrombin Time 32.4 Seconds (11.1-14.7)
== END 2023-04-10 12:28 | disposition home or self-care (01) ==
PROVIDERS: PCP Family Medicine; Visit Provider Internal Medicine Cardiovascular Disease
DX: Z51.81 Encounter for therapeutic drug level monitoring (principal); Z79.899 Other long term (current) drug therapy
CPT/HCPCS: 36415; 85610

== ENCOUNTER 2023-04-23 12:54 | Outpatient (CLI) | payer MEDICARE, SELFPAY ==
[2023-04-23 18:18] LABS: INR 2.3; Prothrombin Time 27.5 Seconds (11.1-14.7)
== END 2023-04-23 12:55 | disposition home or self-care (01) ==
PROVIDERS: PCP Nurse Practitioner Adult Health; Visit Provider Internal Medicine Cardiovascular Disease
DX: E03.9 Hypothyroidism, unspecified (principal); I35.8 Other nonrheumatic aortic valve disorders
CPT/HCPCS: 36415; 84443; 85610

== ENCOUNTER 2023-05-10 15:49 | Outpatient (CLI) | payer MEDICARE, SELFPAY ==
--- NOTE | ~2023-05-10 | US_ITS ---
EXAMINATION: US soft tissue UE RT DATE: 05/10/2023 16:21 INDICATION: Right upper limb localized swelling, mass and lump. TECHNIQUE: Multiple grayscale and Doppler ultrasound images of the right upper limb were obtained. COMPARISON: None FINDINGS: In the patient's area of concern in the right upper arm, there is ill-defined subcutaneous hypoechogenicity with increased vascularity and surrounding hyperechoic fat, consistent with cellulit is. IMPRESSION: 1. Right upper limb cellulitis. No drainable abscess. Reviewed, dictated and finalized at location E. PANEL PADDER
[2023-05-10 17:39] LABS: Alanine Aminotransferase 28 U/L (6-35); Albumin Level 4.3 g/dL (3.5-5.1); Alkaline Phosphatase 82 U/L (38-126); Anion Gap 8 mmol/L (8-16); Aspartate Amino Transferase 36 U/L (14-36); Blood Urea Nitrogen 14 mg/dL (7-17); Carbon Dioxide 27 mmol/L (22-30); Chloride 103 mmol/L (98-107); Cholesterol 131 mg/dL (0-200); Estimated Glomerular Filt Rate > 60; Glucose 99 mg/dL (65-110); HDL Direct 43 mg/dL; Sodium 138 mmol/L (137-145); Triglycerides 116 mg/dL (<150)
[2023-05-10 17:50] LABS: LDL Cholesterol Direct 66 mg/dL
[2023-05-10 18:36] LABS: Hemoglobin A1C 6.4 % (<5.7)
== END 2023-05-10 15:50 | disposition home or self-care (01) ==
PROVIDERS: PCP Nurse Practitioner Adult Health; Visit Provider Family Medicine
DX: E03.9 Hypothyroidism, unspecified (principal); E11.9 Type 2 diabetes mellitus without complications; G47.33 Obstructive sleep apnea (adult) (pediatric); I10 Essential (primary) hypertension; I25.2 Old myocardial infarction; I25.810 Atherosclerosis of coronary artery bypass graft(s) without angina pectoris; I50.9 Heart failure, unspecified; K21.9 Gastro-esophageal reflux disease without esophagitis; K58.9 Irritable bowel syndrome, unspecified; R13.10 Dysphagia, unspecified; R79.89 Other specified abnormal findings of blood chemistry; Z95.2 Presence of prosthetic heart valve; R22.31 Localized swelling, mass and lump, right upper limb
CPT/HCPCS: 36415; 76882; 80053; 80061; 83036

== ENCOUNTER 2023-05-14 12:48 | Outpatient (CLI) | payer MEDICARE, SELFPAY ==
[2023-05-14 13:21] LABS: Hematocrit 38.9 % (37.0-47.0); Hemoglobin 12.8 g/dL (12.0-15.0); Mean Corpuscular HGB Conc 32.9 g/dl (32-36); Mean Corpuscular Hemoglobin 30.9 pg (26-34); Mean Platelet Volume 10.1 fl (7.4-10.4); Platelet Count Result 192 k/mm3 (150-375); Red Blood Count 4.14 M/mm3 (4.2-5.4); Red Cell Distribution Width 13.3 % (11.5-14.5); White Blood Count 6.4 K/mm3 (4.5-10.0)
[2023-05-14 13:57] LABS: Influenza A QL RT-PCR Negative (Negative); Influenza B QL RT-PCR Negative (Negative); RSV RNA, RT-PCR Negative (Negative); SARS-CoV-2 RNA PCR Negative (Negative)
== END 2023-05-14 12:49 | disposition home or self-care (01) ==
PROVIDERS: PCP Nurse Practitioner Adult Health; Visit Provider Family Medicine
DX: J02.9 Acute pharyngitis, unspecified (principal); E03.9 Hypothyroidism, unspecified; E11.9 Type 2 diabetes mellitus without complications; G47.33 Obstructive sleep apnea (adult) (pediatric); I10 Essential (primary) hypertension; I25.2 Old myocardial infarction; I25.810 Atherosclerosis of coronary artery bypass graft(s) without angina pectoris; I50.9 Heart failure, unspecified; J39.8 Other specified diseases of upper respiratory tract; K21.9 Gastro-esophageal reflux disease without esophagitis; K58.9 Irritable bowel syndrome, unspecified; R13.10 Dysphagia, unspecified; R79.89 Other specified abnormal findings of blood chemistry; Z95.2 Presence of prosthetic heart valve
CPT/HCPCS: 36415; 85027; 85610; 87637

== ENCOUNTER 2023-06-27 13:06 | Outpatient (CLI) | payer MEDICARE, SELFPAY ==
[2023-06-27 18:33] LABS: INR 2.4; Prothrombin Time 27.5 Seconds (11.1-14.7)
== END 2023-06-27 13:07 | disposition home or self-care (01) ==
PROVIDERS: PCP Family Medicine; Visit Provider Internal Medicine Cardiovascular Disease
DX: I35.8 Other nonrheumatic aortic valve disorders (principal)
CPT/HCPCS: 36415; 85610

== ENCOUNTER 2023-08-16 14:30 | Outpatient (CLI) | payer MEDICARE, SELFPAY ==
[2023-08-16 20:06] LABS: Hematocrit 43.2 % (37.0-47.0); Hemoglobin 13.9 g/dL (12.0-15.0); Mean Corpuscular HGB Conc 32.2 g/dl (32-36); Mean Corpuscular Hemoglobin 30.6 pg (26-34); Mean Corpuscular Volume 95.2 fl (80-100); Mean Platelet Volume 10.8 fl (7.4-10.4); Platelet Count Result 227 k/mm3 (150-375); Red Blood Count 4.54 M/mm3 (4.2-5.4); White Blood Count 8.8 K/mm3 (4.5-10.0)
[2023-08-16 20:14] LABS: INR 2.3; Prothrombin Time 27.4 Seconds (11.1-14.7)
[2023-08-16 20:29] LABS: Appearance Urine Cloudy (Clear); Color Urine Yellow (Yellow); pH Urine 5.5 (5.0-9.0)
[2023-08-16 20:30] LABS: Bacteria Urine 1+ /hpf; Bilirubin Urine Negative (Negative); Blood Urine Negative (Negative); Budding Yeast Urine Present /hpf; Glucose Urine UA Negative (Negative); Ketones Urine Negative (Negative); Leukocyte Esterase Ur 2+ LEU/UL (Negative); Need Manual Microscopic Reviewed; Nitrate Urine Negative (Negative); Non Pathogenic Casts 0-2; Protein Urine Negative (Negative); Squamous Epithelial Cell Urine Moderate /hpf (Few); Urobilinogen Urine 0.2 mg/dL (<2.0); WBC Urine >100 /hpf (0-3)
[2023-08-16 20:32] LABS: Add Urine Microscopic? YES
[2023-08-16 20:42] LABS: Creatinine Urine 168.1 mg/dL
[2023-08-16 20:45] LABS: MALB Creatinine Ratio 8.3 mg/g (0-30); Microalbumin Urine Random 13.9 mg/L (0-16.7)
[2023-08-16 20:46] LABS: Alanine Aminotransferase 29 U/L (6-35); Albumin Level 4.4 g/dL (3.5-5.1); Alkaline Phosphatase 102 U/L (38-126); Anion Gap 4 mmol/L (4-12); Aspartate Amino Transferase 44 U/L (14-36); Bilirubin,Total 0.7 mg/dL (0.2-1.3); Blood Urea Nitrogen 14 mg/dL (7-17); Calcium 9.9 mg/dL (8.4-10.2); Carbon Dioxide 31 mmol/L (22-30); Chloride 103 mmol/L (98-107); Cholesterol 119 mg/dL (0-200); Estimated Glomerular Filt Rate > 60; Glucose 104 mg/dL (65-110); HDL Direct 46 mg/dL; Potassium 3.7 mmol/L (3.4-5.0); Sodium 138 mmol/L (137-145); Triglycerides 172 mg/dL (<150)
[2023-08-16 20:58] LABS: LDL Cholesterol Direct 58 mg/dL
[2023-08-16 21:16] LABS: Thyroid Stimulating Hormone 0.067 uIU/mL (0.465-4.680)
[2023-08-16 21:41] LABS: Hemoglobin A1C 6.3 % (<5.7)
== END 2023-08-16 14:31 | disposition home or self-care (01) ==
LOC: ANHBWCLAB 14:31
PROVIDERS: PCP Nurse Practitioner Adult Health; Visit Provider Nurse Practitioner Adult Health
DX: I25.810 Atherosclerosis of coronary artery bypass graft(s) without angina pectoris (principal); R39.9 Unspecified symptoms and signs involving the genitourinary system; E11.9 Type 2 diabetes mellitus without complications; E03.9 Hypothyroidism, unspecified; I10 Essential (primary) hypertension
CPT/HCPCS: 36415; 80053; 80061; 81001; 82043; 82565; 83036; 84443; 85027; 85610; 87077; 87086; 87088; 87186

== ENCOUNTER 2023-11-14 13:54 | Outpatient (CLI) | payer MEDICARE, SELFPAY ==
[2023-11-14 19:08] LABS: Basophils Absolute Auto 0.1 K/mm3 (0.0-0.1); Basophils Percent Auto 0.6 % (0.2-1.2); Eosinophils Absolute Auto 0.3 K/mm3 (0-0.3); Eosinophils Percent Auto 2.9 % (0-4.4); Hematocrit 43.5 % (37.0-47.0); Hemoglobin 14.1 g/dL (12.0-15.0); Immature Granulocyte Absolute 0.02 K/mm3 (0.00-0.031); Immature Granulocyte Percent A 0.2 % (0-0.5); Lymphocytes Absolute Auto 2.28 K/mm3 (0.9-3.2); Lymphocytes Percent Auto 26.3 % (18.3-44.2); Mean Corpuscular HGB Conc 32.4 g/dl (32-36); Mean Corpuscular Hemoglobin 30.5 pg (26-34); Mean Platelet Volume 10.4 fl (7.4-10.4); Monocytes Absolute Auto 0.9 K/mm3 (0.1-0.6); Monocytes Percent Auto 9.8 % (2.6-8.5); Neutrophils Absolute Auto 5.2 K/mm3 (1.3-6.7); Neutrophils Percent Auto 60.2 % (45.5-73.1); Platelet Count Result 273 k/mm3 (150-375); Red Blood Count 4.63 M/mm3 (4.2-5.4); White Blood Count 8.7 K/mm3 (4.5-10.0)
[2023-11-14 19:17] LABS: INR 2.1; Prothrombin Time 24.3 Seconds (11.1-14.7)
[2023-11-14 19:35] LABS: Alanine Aminotransferase 31 U/L (6-35); Albumin Level 4.5 g/dL (3.5-5.1); Alkaline Phosphatase 99 U/L (38-126); Anion Gap 12 mmol/L (4-12); Aspartate Amino Transferase 57 U/L (14-36); Bilirubin,Total 1.2 mg/dL (0.2-1.3); Blood Urea Nitrogen 13 mg/dL (7-17); Calcium 9.7 mg/dL (8.4-10.2); Carbon Dioxide 29 mmol/L (22-30); Chloride 98 mmol/L (98-107); Cholesterol 131 mg/dL (0-200); Estimated Glomerular Filt Rate > 60; Glucose 159 mg/dL (65-110); HDL Direct 42 mg/dL; Potassium 3.9 mmol/L (3.4-5.0); Sodium 139 mmol/L (137-145); Triglycerides 185 mg/dL (<150)
[2023-11-14 19:46] LABS: LDL Cholesterol Direct 55 mg/dL
[2023-11-14 20:33] LABS: Thyroid Stimulating Hormone Reflex < 0.015 uIU/mL (0.465-4.68)
[2023-11-14 21:04] LABS: Hemoglobin A1C 6.5 % (<5.7)
[2023-11-14 21:30] LABS: Free T4 Free Thyroxine Reflex 1.92 ng/dL (0.78-2.19)
[2023-11-14 22:23] LABS: Total Triiodothyronine (T3) 1.25 NG/ML (0.97-1.69)
== END 2023-11-14 13:55 | disposition home or self-care (01) ==
PROVIDERS: PCP Nurse Practitioner Adult Health; Visit Provider Nurse Practitioner Adult Health
DX: E11.9 Type 2 diabetes mellitus without complications (principal); I10 Essential (primary) hypertension; I25.810 Atherosclerosis of coronary artery bypass graft(s) without angina pectoris
CPT/HCPCS: 36415; 80053; 80061; 82565; 83036; 83735; 84439; 84443; 84480; 85025; 85610

== ENCOUNTER 2023-11-15 10:27 | Outpatient (CLI) | payer MEDICARE, SELFPAY ==
[2023-11-15 19:43] LABS: Creatinine Urine 265.1 mg/dL
[2023-11-15 19:45] LABS: MALB Creatinine Ratio 6.5 mg/g (0-30); Microalbumin Urine Random 17.3 mg/L (0-16.7)
== END 2023-11-15 10:28 | disposition home or self-care (01) ==
PROVIDERS: PCP Nurse Practitioner Adult Health; Visit Provider Nurse Practitioner Adult Health
DX: E11.9 Type 2 diabetes mellitus without complications (principal)
CPT/HCPCS: 82043

== ENCOUNTER 2023-11-20 12:07 | Outpatient (CLI) | payer MEDICARE, SELFPAY ==
[2023-11-20 20:48] LABS: Add Urine Microscopic? YES; Appearance Urine Clear (Clear); Bacteria Urine None Seen /hpf; Bilirubin Urine Negative (Negative); Blood Urine Negative (Negative); Budding Yeast Urine Present /hpf; Color Urine Yellow (Yellow); Glucose Urine UA Negative (Negative); Ketones Urine Negative (Negative); Leukocyte Esterase Ur 2+ LEU/UL (Negative); Need Manual Microscopic Reviewed; Nitrate Urine Negative (Negative); Non Pathogenic Casts 0-2; Protein Urine Negative (Negative); RBC Urine 0-2 /hpf (0-2); Specific Grav Ur 1.007 (1.001-1.035); Squamous Epithelial Cell Urine Few /hpf (Few); Urobilinogen Urine 0.2 mg/dL (<2.0); WBC Urine 0-5 /hpf (0-3)
== END 2023-11-20 12:08 | disposition home or self-care (01) ==
LOC: ANHBWCLAB 12:09
PROVIDERS: PCP Nurse Practitioner Adult Health; Visit Provider Nurse Practitioner Adult Health
DX: R39.9 Unspecified symptoms and signs involving the genitourinary system (principal)
CPT/HCPCS: 81001

== ENCOUNTER 2023-12-17 14:02 | Outpatient (CLI) | payer MEDICARE, SELFPAY ==
[2023-12-17 18:57] LABS: INR 2.6
[2023-12-17 19:04] LABS: Alanine Aminotransferase 29 U/L (6-35); Albumin Level 4.2 g/dL (3.5-5.1); Alkaline Phosphatase 78 U/L (38-126); Anion Gap 5 mmol/L (4-12); Aspartate Amino Transferase 40 U/L (14-36); Blood Urea Nitrogen 15 mg/dL (7-17); Calcium 9.3 mg/dL (8.4-10.2); Carbon Dioxide 33 mmol/L (22-30); Chloride 98 mmol/L (98-107); Estimated Glomerular Filt Rate > 60; Glucose 115 mg/dL (65-110); Potassium 4.3 mmol/L (3.4-5.0); Sodium 136 mmol/L (137-145)
[2023-12-17 19:29] LABS: Thyroid Stimulating Hormone 0.064 uIU/mL (0.465-4.680)
== END 2023-12-17 14:03 | disposition home or self-care (01) ==
PROVIDERS: PCP Nurse Practitioner Adult Health; Visit Provider Nurse Practitioner Adult Health
DX: E03.9 Hypothyroidism, unspecified (principal); E11.9 Type 2 diabetes mellitus without complications; Z51.81 Encounter for therapeutic drug level monitoring
CPT/HCPCS: 36415; 80053; 84443; 85610

== ENCOUNTER 2024-03-10 10:30 | Outpatient (CLI) | payer MEDICARE, SELFPAY | END 2024-03-10 10:31 | disposition home or self-care (01) | PROVIDERS: PCP Nurse Practitioner Adult Health; Visit Provider Nurse Practitioner Adult Health | DX: E03.9 Hypothyroidism, unspecified (principal) | CPT/HCPCS: 36415; 84443 ==

== ENCOUNTER 2024-06-16 10:21 | Outpatient (CLI) | payer MEDICARE, SELFPAY ==
--- OUTSIDE RECORDS SUMMARY | 2024-06-16 11:37 | XMS_ITS | Continuity of Care Document ---
Author Organization [facility] Address [address] [place] [address] Phone Care Team Providers Care Tool Shaper Setup Operator Name Role Phone Onofre Wilks MD Unavailable Unavailable Advance Directives Directive Yes / No Effective Date File Name No Information Encounters Encounter Description Practice Location Reason(s) For Visit Diagnoses Date Provider Providers Copied on Encounter [facility], [address], [place], [place], [id number], [place] tel:[phone] [facility] No Information Lashaun Adhikari. [address], [place], [id number], [place]. tel:[phone] Referring Provider: Riley Mendiola, [address] [place], [address]. tel:[phone] Family History Family Member Type Diagnosis Age At Onset No Information Payers Payer name Insurance type Covered republican ID Authoriza tion(s) No Information Social History Type Description Quantity Date Captured Comments Sex Female Smoking Status No Information Chief Complaint And Reason For Visit No Information Reason For Referral Reason For Referral No Information History Of Present Illness Encounter Date Complaint History Of Prese nt Illness No Information Functional Status Date Functional Assessmen t No Information Instructions Date Instruction Additional Infor mation No Information Assessments Type Assessment Date No Information Patient Care Teams Name Effective Dates (start - stop) Status Members No Information
--- OUTSIDE RECORDS SUMMARY | 2024-06-16 11:37 | XMS_ITS | Continuity of Care Document ---
Author Organization [facility] Address [address] [id number] [address] Phone Care Team Providers Care Weighing Station Operator Name Role Phone Shakira Campos NP Unavailable Unavailable Allergies, Adverse Reactions, Alerts Substance Reaction Status Criticality prednisone raging behavior Active No Informati on Medications Medication Instructions Dosage Effective Dates (start - stop) Status Comments pantoprazole 40 mg tablet,delayed release take 1 tablet by oral route every day 40 MG - Active amoxicillin 875 mg tablet take 1 tablet by oral route every 12 hours 875 MG - Active albuterol sulfate HFA 90 mcg/actuation aerosol inhaler inhale 1-2 puffs by inhalation route every 4 - 6 hours as needed for cough or shortness of breath - Active doxazosin 4 mg tablet TAKE 1 TABLET BY MOUTH ONCE DAILY - Active atenolol 100 mg tablet take 1 tablet by oral route every day 100 MG - Active levothyroxine 100 mcg tablet take 1 tablet by oral route every day 100 MCG - Active 340B citalopram 20 mg tablet TAKE 1 TABLET BY MOUTH ONCE DAILY . - Active triamcinolone acetonide 0.025 % topical cream apply by topical route 2 times every day a thin layer to the affected area(s) 0.00 - Active Procedures Procedure Date OFFICE/OUTPATIENT VISIT EST Finalize Template Workaround Lab Only Infectious Agent Antigen Immunoassay KAIDEN S CoV 2 OFFICE/OUTPATIENT VISIT EST ROUTINE VENIPUNCTURE ASSAY THYROID STIM HORMONE OFFICE/OUTPATIENT VISIT EST Infectious Agent Antigen Immunoassay KAIDEN S CoV 2 OFFICE/OUTPATIENT VISIT EST Infectious Agent Antigen Immunoassay KAIDEN S CoV 2 Infectious Agent DNA Or RNA Specimen Collection SARS-CoV-2 OFFICE/OUTPATIENT VISIT EST ASSAY THYROID STIM HORMONE ROUTINE VENIPUNCTURE OFFICE/OUTPATIENT VISIT EST ROUTINE VENIPUNCTURE COMPREHEN METABOLIC PANEL ASSAY THYROID STIM HORMONE BL SMEAR W/DIFF WBC COUNT OFFICE/OUTPATIENT VISIT EST COMPLETE CBC AUTOMATED OFFICE/OUTPATIENT VISIT EST Pap Test & HPV CPT 75252/[id number] 17 ASSAY BLD/SERUM CHOLESTEROL ASSAY OF LIPOPROTEIN GLYCOSYLATED HEMOGLOBIN TEST ROUTINE VENIPUNCTURE PREV VISIT, NEW, AGE 40-64 Advance Directives Directive Yes / No Effective Date File Name No Information Encounters Encounter Description Practice Location Reason(s) For Visit Diagnoses Date Provider Providers Copied on Encounter [facility], [id number]- [place], [place], [id number], [place] tel:[phone] [facility] No Information 2 Andres Rosenberg. [address] [place], [address], [place]. tel:[phone] [facility], [id number]- [place], [place], [address], [place] tel:[phone] [facility] No Information 2 Yadyheatherlois Sherman. [address], [place], [address], [place]. tel:[phone] OFFICE/OUTPA TIENT VISIT EST [facility], [id number]- [place], [place], [address], [place] tel:[phone] [facility] Cough (chief complaint) Community acquired pneumonia of right lower lobe of lungPost-COV ID-19 syndrome 2 Camron Fernández. [address], [place], [address], [place]. tel:[phone] Referring Provider: Pradeep Lyon, [address] [place], [address] . tel:[phone] [facility], [id number]- [place], [place], [address], [place] tel:[phone] [facility] No Information 2 Andres Rosenberg. [address] [place], [address], [place]. tel:[phone] [facility], [id number]- [place], [place], [address], [place] tel:[phone] [facility] CoughLab test positive for detection of COVID-19 virus 1 Andres Rosenberg. [address] [place], [address], [place]. tel:[phone] Referring Provider: Shakira Campos, [address] [place], [address]. tel:[phone] [facility], [id number]- [place], [place], [id number], [place] tel:[phone] [facility] No Information 1 Andres Rosenberg. [address] [place], [address], [place]. tel:[phone] OFFICE/OUTPA TIENT VISIT EST [facility], [id number], [address], [place] tel:[phone] [facility] hypertension (chief complaint)Hyp othyroidism (chief complaint)dep ression (chief complaint) Essential (primary) hypertension Hypothyroidi sm, unspecifiedA nxiety depressionCa rdiac murmur, unspecifiedB kelly mass index (BMI) 40.0-44.9, adult Aug-0 1 Andres Rosenberg. [address] [place], [address], [place]. tel:[phone] Referring Provider: Shakira Campos, [address] [place], [address]. tel:[phone] OFFICE/OUTPA TIENT VISIT [facility], [id number], [address], [place] tel:[phone] [facility] cough (chief complaint) CoughBronchi tis 1 Andres Rosenberg. [address] [place], [address], [place]. tel:[phone] Referring Provider: Shakira Campos, [address] [place], [address]. tel:[phone] OFFICE/OUTPA TIENT VISIT [facility], [id number], [address], [place] tel:[phone] [facility] cold symptoms (chief complaint) CoughBronchi tis 1 Garibaldiemmanuel Rosenberg. [address] [place], [address], [place]. tel:[phone] Referring Provider: Shakira Campos, [address] [place], [address]. tel:[phone] [facility], [id number], [address], [place] tel:[phone] [facility] No Information 1 Andres Rosenberg. [address] [place], [address], [place]. tel:[phone] Referring Provider: Shakira Campos, [address] [place], [address]. tel:[phone] OFFICE/OUTPA TIENT VISIT [facility], [id number], [address], [place] tel:[phone] [facility] GERD (chief complaint)Thy roid (chief complaint)Hyp ertension (chief complaint) Hypothyroidi sm, unspecifiedE ssential (primary) hypertension Cardiac murmur, unspecifiedG ERD w/o esophagitisD ysphagia 0 Garibaldi Shakira. [address] [place], [address], [place]. tel:[phone] Referring Provider: Shakira Campos, [address] [place], [address]. tel:[phone] OFFICE/OUTPA TIENT VISIT [facility], [id number], [address], [place] tel:[phone] [facility] medication refill (chief complaint)cys t under arm (chief complaint)hyp ertension (chief complaint)hyp othyroidism (chief complaint) Staph skin infectionEss ential (primary) hypertension Hypothyroidi sm, unspecified 0 Andresemmanuel Rosenberg. [address] [place], [address], [place]. tel:[phone] Referring Provider: Shakira Campos, [address] [place], [address]. tel:[phone] OFFICE/OUTPA TIENT VISIT [facility], [id number], [address], [place] tel:[phone] [place] infected right great toe (chief complaint)nee ding refill on Hypertension med (chief complaint) Hypothyroidi sm, unspecifiedE ssential (primary) hypertension Ingrowing nail 9 No Information OFFICE/OUTPA TIENT VISIT EST [facility], [id number]- [facility], [place], [place], [address], [place] tel:[phone] [facility] Est Care (chief complaint) Hypothyroidi sm, unspecifiedH ypertensionA nxiety depression 9 No Information [facility], [id number] [place], [place], [address], [place] tel:[phone] [facility] F1 Encounter for screening for malignant neoplasm of cervix 7 No Information [facility], [id number]- [facility], [place], [place], [address], [place] tel:[phone] [facility] 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) w/o abn findings 7 No Information PREV VISIT, NEW, AGE 40-64 [facility], [id number]- [facility], [place], [place], [address], [place] tel:[phone] [facility] F1 annual exam (chief complaint)abdi ast mass/lump (chief complaint) Encounter for oth screening for malignant neoplasm of breastEncoun ter for screening for diabetesEnco unter for screening for hypercholest erolemiaEnco unter for screening for malignant neoplasm of cervixEncntr for supervisor pipeline maintenance exam (general) (routine) w abnormal findingsCand idiasis of vulva and vagina 7 No Information Family History Family Member Type Diagnosis Age At Onset Father Problem (finding) hypertension Problem (finding) Family history of strok e Daughter Problem (finding) hypertension Mother Problem (finding) malignant neoplasm of p ancreas Problem (finding) Family history of Heart disease Problem (finding) Family history of Cance r, unknown Payers Payer name Insurance type Covered constitution party ID Authoriza tion(s) No Information Social History Type Description Quantity Date Captured Comments Sex Female Smoking Status No Information Sexual Orientation Heterosexual Gender Identity Female Chief Complaint And Reason For Visit No Information Reason For Referral Reason For Referral No Information Plan Of Treatment Date Type Action Status Goal Lifestyle education vetoin pablo diet completed Referral Ordered: Referrals: ENT. Location: [facility]. Consult Appointment date/timeframe: 02/23/2020 ordered Referral Ordered: Referrals: mammogram. Location: [facility]. Diagnostic testing Appointment date/timeframe: 06/12/2016 ordered History Of Present Illness Encounter Date Complaint History Of Prese nt Illness Cough Onset: 5 months ago. The patient describes the cough as productive (of clear sputum). Additional information: Presents for complaint of clear productive cough chest burning sensation, pain radiating into neck, sore throat, back pain, and SOA worsening for two weeks ago. Has been using old inhaler. States, I just never have gotten better since I had COVID. History of COVID19 in November 2020. hypertension It is currently stable. Risk factors include age over age 60, inactive lifestyle and obesity. Associated symptoms include fatigue. Pertinent negatives include chest pain, headache, irregular heartbeat/palpitations and visual disturbances. Additional information: Pt states murmur has been DX for many years. States her father has one too. depression This is a follow up visit. The client reports functioning as not difficult at all. The client presents with fatigue but denies anxious/fearful thoughts, depressed mood, difficulty concentrating, difficulty falling asleep, difficulty staying asleep, diminished interest or pleasure, excessive worry or thoughts of or suicide. The client denies any headache. Hypothyroidism Taking medicatio n as directed having increased fatigue. No other s/s. Currrent 2 doses of AngioChem COVID vaccine. cough Onset: 7 days ag o. Severity: 6. The client describes the cough as hacking and non-productive. It occurs persistently. The problem has become gradually worse. Symptoms are aggravated by lying down. Associated symptoms include cough, dyspnea on exertion, fatigue, nasal congestion, post-nasal drainage, rhinorrhea and wheezing. Pertinent negatives include fever. Additional information: Pt states had COVID vaccine last week and then got sick and has not improved. Denies SOB except when exterting herself. Denies fever. States may have improved some since shot but chest is tight and coughing. cold symptoms The patient desc ribes the cough as productive (of green sputum). Associated symptoms include chills, cough, dyspnea, fatigue, heartburn, nasal congestion, rhinorrhea, sinus pressure and sore throat. Pertinent negatives include fever, hemoptysis and wheezing. GERD Onset: 5 Years. The severity of the problem is mild. Pain scale: 0/10. The problem has not changed. The symptoms are intermittent. The location is epigastric. Pertinent negatives include constipation, diarrhea, nausea and vomiting. Thyroid Pt states has webb d radiation to thyroid/neck 3X and currently been on same levothyroxine dose for some time without issues. States has noticed some difficulty swallowing lately and a tightness in the throat. Denies pain. Denies cough. Hypertension It is currently stable. Risk factors include age over age 60, inactive lifestyle and obesity. Pertinent negatives include chest pain, fatigue, headache, nausea and vomiting. medication refill cyst under arm The symptoms beg an 1 month ago. States gets off and on and treated with topical abx cream which works well. Denies fever or chills. Reports hx of staph. hypertension It is currently stable. Risk factors include age over age 60, inactive lifestyle and obesity. Pertinent negatives include fatigue, headache, irregular heartbeat/palpitations and tremor. hypothyroidism Pt denies concer ns. States taking medication as directed. Reviewed labs - WNL. infected right great toe Pt pres ents to the clinic with complaints of Right great toe pain/injury. She reports she ripped partial nail off several days ago. Since that time she has had pain, erythema, and green/yellow drainage. She also reports some mild swelling and pain with palpation to the area. needing refill on Hy pertension med Pt would also like to refill blood pressure medication, if she needs it. She reports she ran out of amlodipine several days ago and blood pressure today is WNL. She did not have labs obtained since last visit. No other concerns at this time. Est Care Pt presents to t he clinic today to establish care as well as obtain medication refills. She states her PCP was independent and closed his office without notice and her records are unobtainable at this point. She is self pay. Pt reports hx hypertension, hypothyroid, and depression/anxiety. She states she is doing well on her current medication regimen. Last fasting labs, she reports, were completed 01/2018. She states no medications were adjusted at that time. She is needing refills today on Tirosint, Atenolol, and Celexa. She has a current script for both Amlodipine and Doxazosin. She denies any concerns at this time. breast mass/lump Pertinent negat george include breast pain. annual exam (comments) Pt is a [age] year old female here for WWE with [facility]. She had a abnormal screening mammogram. Hx of vaginal cysts on left side and has been there for many years. She sometimes has pain with it. Sometimes gets as big as a fingernail. Reports occasional vaginal burning; improved with fluconazole. Denies discharge. Pt denies hx of abnormal pap smears. Last pap smear: 2012. Denies dyplasia. Hx of HPV 2012 for larygneal papillomatosusFamily Hx of breast, uterine, ovarian or colon cancers: deniesLast colonoscopy: 2004 and was normal. breast mass/lump (comments) Pt h ad a screening mammogram done 05/17/16 at [facility] which shows bilateral focal nodular asymmetries in lower anterior right breast, outer right breast, and 2 in outer left breast. BIRADs 0. Recommendation for Dx mammogram and breast US. Pt has appt scheduled for Dx mammogram on 06/12/16 at [facility]. Last mammogram prior to this year was approx 5 years. annual exam The patient stat es she uses tubal ligation for control. Negative for: breast discharge, breast lump(s) and breast self exam. Positive for: breast pain (side: bilateral).Postmenopausal: Age: 46, Type: natural. Negative for Hormone replacement therapy. Menopausal symptoms negative for: night sweats and vaginal dryness. Menopausal symptoms positive for: hot flashes and insomnia. Associated symptoms include nocturia and sleep disturbances. Pertinent negatives include abnormal bleeding (hematology), abnormal vaginal bleeding, anxiety, decreased libido, depression, difficulty falling sleep, dyspareunia, history of infertility, sexual dysfunction, urinary incontinence, urinary urgency, vaginal discharge and vaginal itching. Diet reg. She does not take calcium. She does not take Vitamin D. She does take multivitamins occasionally. She does not take Folic acid.The patient states her exercise level is moderate and frequency is 2-3 times/week. The patient does not use tobacco. She does drink alcohol. Functional Status Date Functional Assessmen t No Information Instructions Date Instruction Additional Infor gilles Advised COVID19 symp toms may linger years.Rest when tired, eat healthy diet, exercise to improve over all health. Related to [id number] syndrome Augmentin and albute rol MDI prescribedAdvised cetirizine and guaifenesin for PND/nasal secretions.\Go to ER for worsening dyspnea, chest pain radiating to jaw, fever above 101 not relieved by antipyretics.Follow up with PCP in two weeks if not improved. Related to Community acquired pneumonia of right lower lobe of lung Lifestyle education regarding di et Related to Body mass index [BMI]40.0-44.9, adult Weight control education Related to Hypothyroidism, unspecified Hypertension education Related t o Hypothyroidism, unspecified Hypertension education Related t o Essential (primary) hypertension Weight control education Related to Staph skin infection Will stop amlodipine for now.CBC, CMP, and TSH obtained today, will call with results.Recommend FLP and A1C as soon as able to afford.Monitor blood pressure 2-3 x week x 2 weeks and call with numbers to determine further need for amlodipine.RTC in 3 months for follow up and medication refill, sooner if additional concerns. Related to Essential (primary) hypertension Keep affected area c lean and dry.Soak with Epsom salt BID x 20 min day.Keflex 500 mg TID x 7 days.RTC if symptoms do not improve as expected, sooner if additional concerns. Related to Ingrowing nail Continue Celexa 20 m g daily.Refilled x 3 months today.RTC in 3 months for follow up, sooner if concerns. Related to Anxiety depression Continue Tirosint 10 0 mcg daily.Refilled today x 3 months.Will repeat thyroid labs in 3 months with fasting labs.RTC in 3 months for follow up. Related to Hypothyroidism, unspecified Blood pressure stabl e at this time.Continue Amlodipine 5 mg daily, Atenolol 100 mg daily, and Doxazosin 4 mg daily.Atenolol refilled today x 3 months.RTC in 3 months for follow up and fasting labs. Related to Hypertension Pelvic exam with pap smear/HPV cotesting today. If normal pap smear results, then repeat in 5 years. Reassured patient regarding benign vulvar inclusion cysts. Avoid tight fitting pants. If they become larger or symptomatic, then may return for removal of inclusion cysts.Script for diflucan. Avoid any scented body wash or feminine productions. 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 Pt declines STD testing today.Encouraged routine exercise with moderate activity at least 30 minutes for 4-5 times per week.Reccomended daily multivitamin and adequate calcium intake of 1200 mg daily and Vit D of 800 IU daily.Apply for slide program and establish care with PCP for management of HTN and hypothyroidism. 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
--- OUTSIDE RECORDS SUMMARY | 2024-06-16 11:37 | XMS_ITS | Referral Summary ---
Author Organization [facility] Address [address] [place] [address] Care Team Providers Care Kiln Mechanic Name Role Phone Delano Wolfe MD Primary Care Provider [phone] Allergies No known active allergies Medications azithromycin (Zithromax Z-Monster) 250 mg tabletIndicatio ns:Pneumonia, Community Acquired Take 1 tablet (250 mg total) by mouth daily Take first 2 tablets together, then 1 every day until finished. 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 Gender Identity Not on file Sexual Orientation Not on file Last Filed Vital Signs Vital Sign Reading Time Taken Comments Blood Pressure 143/59 07/03/2022 6:04 AM CDT Pulse 117 07/03/2022 6:04 AM CDT Temperature 37.3 C (99.2 F) 07/03/2022 6:04 AM CDT Respiratory Rate 20 07/03/2022 6:04 AM CDT Oxygen Saturation 98% 07/03/2022 6:04 AM CDT Inhaled Oxygen Concentration - - Weight 100.7 kg (222 lb) 07/03/2022 6:04 AM CDT Height 157.5 cm (5' 2 ) 07/03/2022 6:04 AM CDT Body Mass Index 40.6 07/03/2022 6:04 AM CDT Plan of Treatment Not on file Insurance [employer] MEDICARE PPO [employer] MEDICARE PPO [employer] MEDICARE PPO Care Teams Kiln Mechanic Relationship Specialty Start Date End Date Delano Wolfe MD PCP - General Family Practice 09/16/21
--- OUTSIDE RECORDS SUMMARY | 2024-06-16 11:37 | XMS_ITS | Clinical Summary ---
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 Gender Identity Not on file Sexual Orientation [...] 07/03/2022 6:04 AM CDT Plan of Treatment Health Maintenance Due Date Last Done Comments Breast Cancer Screening-Mammogram 1956 Colon Cancer Screening-Colonoscopy 1955 Depression Screening 1956 Fall Risk Assessment 1955 Hepatitis C Screening 1955 Osteoporosis Screening-Bone Density Scan 1955 DTaP/Tdap/Td Vaccine (1 - Tdap) 06/19/1967 Hepatitis B Screening 1974 Well Visit 65+ 2021 Zoster Vaccine (2 of 3) 06/13/2022 04/18/2022 Pneumococcal vaccine 65+ (2 of 2 - PCV) 09/21/2022 0 09/21/2021 Covid-19 Vaccine (3 - 2023- season) 2023, 07/09/2020 Influenza Vaccine (#1) 2023 Insurance [facility] MEDICARE PPO [facility] MEDICARE PPO [employer] MEDICARE PPO Care Teams Composite Assembler Relationship Specialty Start Date End Date Delano Wolfe MD PCP - General Family Practice 09/16/21
--- OUTSIDE RECORDS SUMMARY | 2024-06-16 11:37 | XMS_ITS | Continuity of Care Document ---
Author Organization [facility] Address [address] [address] Phone Care Team Providers Care Clinical Nurse Reviewer Name Role Phone Chinmay Kurtz MD Unavailable Unavailable Allergies, Adverse Reactions, Alerts Substance Reaction Status Criticality No Known allergies Medications Medication Instructions Dosage Effective Dates (start - stop) Status Comments ranitidine 150 mg Tab Take one tablet by mouth every twelve hours - Active Xyzal 5 mg Tab Take one tablet by mouth daily - Active triamcinolone acetonide 0.025 % Topical Cream Apply cream to affected area twice per day - Active Tapazole 10 mg Tab - Active omeprazole 20 mg Cap, Delayed Release Take one capsule by mouth daily - Active aspirin 81 mg Tab - Active Cardura 4 mg Tab Take one tablet by mouth daily - Active dicyclomine 10 mg Cap - Active Lexapro 10 mg Tab Take one tablet by mouth daily - Active atenolol 100 mg Tab Take one tablet by mouth every twelve hours - Active Xyzal 5 mg Tab Take one tablet by mouth daily - No Longer Active ranitidine 150 mg Tab Take one tablet by mouth every twelve hours - No Longer Active Procedures Procedure Date OFFICE/OUTPATIENT VISIT, EST OFFICE/OUTPATIENT VISIT, EST OFFICE/OUTPATIENT VISIT, EST OFFICE/OUTPATIENT VISIT, NEW Advance Directives Directive Yes / No Effective Date File Name No Information Encounters Encounter Description Practice Location Reason(s) For Visit Diagnoses Date Provider Providers Copied on Encounter [facility], [address], [id number], [place] tel:[phone] [facility] No Information 0 8-200 8 Veronicajoe Moy. [address] [place] [address], [address], [id number] , [place]. tel: [phone] [facility], [address] [place] [address], [id number], tel:[phone] [facility] No Information 0 7200 8 Ahmet Sood. [address] [place] [address], [place] [address], [place], [place], [id number] , [place]. tel: [phone] Referring Provider: Derrick Camargo, [address] [place] [address] #[facility], [place], [address]. tel:[phone] OFFICE/OUTPA TIENT VISIT, EST [facility], [address] [place] [address], [id number], tel:[phone] [facility] hives (chief complaint) No Information 6-200 8 Jerardo Moy. [address] [place] [address], [address], [id number] , [place]. tel: [phone] Referring Provider: Derrick Camargo, [address] [place] [address] #[facility], [place], [address]. tel:[phone] OFFICE/OUTPA TIENT VISIT, EST [facility], [address] [place] [address], [id number], tel:[phone] [facility] hives (chief complaint) No Information 0 5200 8 Jerardo Moy. [address] [place] [address], [address], [id number] , [place]. tel: [phone] Referring Provider: Derrick Camargo, [address] [place] [address] #[facility], [place], [address]. tel:[phone] OFFICE/OUTPA TIENT VISIT, EST [facility], [address] [place] [address], [id number], tel:[phone] [facility] hives (chief complaint) No Information 8 Jerardo Moy. [address] [place] [address], [address], [address] [place] [address] , . tel:[phone] Referring Provider: Derrick Camargo, [address] [place] [address] [address], [place], [address]. tel:[phone] OFFICE/OUTPA TIENT VISIT, [facility], [address] [place] [address], [address] [place] [address], tel:[phone] [facility] hives (chief complaint) Unspecified urticariaIRRITABL E BOWEL SYNDROMEBenign essential hypertension 8 Jerardo Moy. [address] [place] [address], [address], [address] [place] [address] , . tel:[phone] Referring Provider: Derrick Camargo, [address] [place] [address] [address], [place], [address]. tel:[phone] Family History Family Member Type Diagnosis Age At Onset No Information Payers Payer name Insurance type Covered alliance party ID Tony ordoñez(s) [facility] CI [id number] Social History Type Description Quantity Date Captured [...]
--- OUTSIDE RECORDS SUMMARY | 2024-06-16 11:37 | XMS_ITS | Clinical Summary ---
Author Organization [facility] Address [address] [place] [address] Care Team Providers Care Charity Fundraiser Name Role Phone Unavailable Primary Care Provider Unavailabl e Allergies Active Allergy Reactions Criticality Noted Date Comments Corticosteroids 08/26/2018 Other reaction(s): Other (See Comments), Other (See Comments) STEROIDS give her roid rage STEROIDS give her roid rage Lactose 06/21/2021 Medications acetaminophen (TYLENOL) 325 MG tablet 2 tablets (650 mg total) by PO/Per Tube route every 6 (six) hours as needed for mild pain or Temp > or equal to 101F (38.3C). 0 2 Active aspirin 81 MG chewable tablet 4 tablets (324 mg total) by PO/Per Tube route daily. 0 2 Active chlorhexidine (PERIDEX) 0.12 % solution Apply 5 mL to the mouth or throat 2 (two) times a day. 118 mL 2 Active citalopram (CeleXA) 20 MG tablet Take 1 tablet (20 mg total) by mouth daily. 0 2 Active enoxaparin (LOVENOX) 40 MG/0.4ML solution Inject 0.4 mL (40 mg total) under the skin daily. 0 2 Active famotidine (PEPCID) 20 MG tablet 1 tablet (20 mg total) by PO/Per Tube route 2 (two) times a day. 0 2 Active hydrALAZINE (APRESOLINE) 20 MG/ML injection Infuse 0.5 mL (10 mg total) into a venous catheter every 6 (six) hours as needed for high blood pressure. 0 2 Active levothyroxine (SYNTHROID) 100 MCG tablet 1 tablet (100 mcg total) by PO/Per Tube route Daily at 6am. 0 2 Active lidocaine (LIDOCARE) 4 % patch patch Place 1 patch on the skin daily. 0 2 Active lisinopril (ZESTRIL) 10 MG tablet Take 1 tablet (10 mg total) by mouth daily. 0 2 Active multivitamin w/ minerals (THERA M PLUS) tablet tablet Take 1 tablet by mouth daily. 0 2 Active ondansetron ODT (ZOFRAN-ODT) 4 MG disintegrating tablet Take 1 tablet (4 mg total) by mouth every 6 (six) hours as needed for nausea or vomiting. 0 2 Active polyethylene glycol (MIRALAX) 17 g packet 17 g by PO/Per Tube route daily as needed (Constipatio n). 10 each 2 Active Active Problems Problem Noted Date Diagnosed Date Respiratory failure 06/21/2021 Family History Medical History Relation Name Comments Cancer Father Cancer Mother Diabetes Mother Alcohol abuse Neg Hx Arthritis Neg Hx Asthma Neg Hx defects Neg Hx COPD Neg Hx Depression Neg Hx Drug abuse Neg Hx Early Neg Hx Hearing loss Neg Hx Heart disease Neg Hx Hyperlipidemia Neg Hx Hypertension Neg Hx Kidney disease Neg Hx Learning disabilities Neg Hx Mental illness Neg Hx Mental retardation Neg Hx Miscarriages / Stillbirths Neg Hx Stroke Neg Hx Vision loss Neg Hx Relation Name Status Comments Father Mother Social History Tobacco Use Types Packs/Day Years Used Date Smoking Tobacco: Never Smokeless Tobacco: Never Alcohol Use Standard Drinks/Week Comments Never 0 (1 standard drink = 0.6 oz pur e alcohol) Comments Unknown Sex and Gender Information Value Date Recorded Sex Assigned at Not on file Legal Sex Female 1:21 PM EDT Gender Identity Not on file Sexual Orientation Not on file Last Filed Vital Signs Vital Sign Reading Time Taken Comments Blood Pressure 132/66 07/04/2021 8:00 AM CDT Pulse 83 07/04/2021 8:00 AM CDT Temperature 35.7 C (96.2 F) 07/04/2021 8:00 AM CDT Respiratory Rate 18 07/04/2021 8:00 AM CDT Oxygen Saturation 94% 07/04/2021 8:00 AM CDT Inhaled Oxygen Concentration - - Weight 101.6 kg (224 lb) 07/02/2021 4:00 AM CDT Height 157.5 cm (5' 2 ) 06/22/2021 11:42 AM CDT Body Mass Index 40.97 06/22/2021 11:42 AM CDT Plan of Treatment Not on file Advance Directives * Full Resuscitation (Latest Code Status on File) Date Activated Date Inactivated Comments 06/21/2021 12:48 PM 07/04/2021 4:08 PM
[2024-06-16 18:28] LABS: Basophils Absolute Auto 0.1 K/mm3 (0.0-0.1); Basophils Percent Auto 0.8 % (0.2-1.2); Eosinophils Absolute Auto 0.2 K/mm3 (0-0.3); Eosinophils Percent Auto 2.7 % (0-4.4); Hematocrit 41.7 % (37.0-47.0); Hemoglobin 13.6 g/dL (12.0-15.0); Immature Granulocyte Absolute 0.02 K/mm3 (0.00-0.031); Immature Granulocyte Percent A 0.3 % (0-0.5); Lymphocytes Absolute Auto 1.52 K/mm3 (0.9-3.2); Lymphocytes Percent Auto 19.4 % (18.3-44.2); Mean Corpuscular HGB Conc 32.6 g/dl (32-36); Mean Corpuscular Hemoglobin 31.2 pg (26-34); Mean Corpuscular Volume 95.6 fl (80-100); Mean Platelet Volume 10.8 fl (7.4-10.4); Monocytes Absolute Auto 0.6 K/mm3 (0.1-0.6); Monocytes Percent Auto 7.7 % (2.6-8.5); Neutrophils Absolute Auto 5.4 K/mm3 (1.3-6.7); Neutrophils Percent Auto 69.1 % (45.5-73.1); Platelet Count Result 214 k/mm3 (150-375); Red Blood Count 4.36 M/mm3 (4.2-5.4); Red Cell Distribution Width 13.2 % (11.5-14.5); White Blood Count 7.8 K/mm3 (4.5-10.0)
[2024-06-16 18:41] LABS: Creatinine Urine 14.4 mg/dL
[2024-06-16 18:45] LABS: Alanine Aminotransferase 23 U/L (6-35); Albumin Level 4.2 g/dL (3.5-5.1); Alkaline Phosphatase 106 U/L (38-126); Anion Gap 7 mmol/L (4-12); Aspartate Amino Transferase 42 U/L (14-36); Bilirubin,Total 0.9 mg/dL (0.2-1.3); Blood Urea Nitrogen 11 mg/dL (7-17); Calcium 9.6 mg/dL (8.4-10.2); Carbon Dioxide 30 mmol/L (22-30); Chloride 97 mmol/L (98-107); Cholesterol 124 mg/dL (0-200); Estimated Glomerular Filt Rate > 60; Glucose 225 mg/dL (65-110); HDL Direct 46 mg/dL; Magnesium 1.9 mg/dL (1.6-2.3); Sodium 134 mmol/L (137-145); Triglycerides 125 mg/dL (<150)
[2024-06-16 18:46] LABS: INR 2.9; Prothrombin Time 30.5 Seconds (11.1-14.7)
[2024-06-16 18:48] LABS: Microalbumin Urine Random < 6.0 mg/L (0-16.7)
[2024-06-16 18:56] LABS: LDL Cholesterol Direct 48 mg/dL
[2024-06-16 19:15] LABS: Thyroid Stimulating Hormone Reflex 0.513 uIU/mL (0.465-4.68)
== END 2024-06-16 10:22 | disposition home or self-care (01) ==
LOC: ANHBWCLAB 10:24
PROVIDERS: PCP Nurse Practitioner Adult Health; Visit Provider Nurse Practitioner Adult Health
DX: E11.9 Type 2 diabetes mellitus without complications (principal); Z95.2 Presence of prosthetic heart valve; I10 Essential (primary) hypertension
CPT/HCPCS: 36415; 80053; 80061; 82043; 82565; 83036; 83735; 84443; 85025; 85610

== ENCOUNTER 2024-09-11 09:28 | Outpatient (CLI) | payer MEDICARE, SELFPAY ==
[2024-09-11 18:44] LABS: Add Urine Microscopic? YES; Appearance Urine Cloudy (Clear); Bacteria Urine 4+ /hpf; Bilirubin Urine Negative (Negative); Blood Urine Negative (Negative); Color Urine Yellow (Yellow); Glucose Urine UA 1+ mg/dL (Negative); Ketones Urine Trace mg/dL (Negative); Leukocyte Esterase Ur Trace LEU/UL (Negative); Nitrate Urine Positive (Negative); Non Pathogenic Casts 0-2; Protein Urine Negative (Negative); RBC Urine 0-2 /hpf (0-2); Specific Grav Ur 1.027 (1.001-1.035); Squamous Epithelial Cell Urine Few /hpf (Few); Urobilinogen Urine 0.2 mg/dL (<2.0); pH Urine 5.5 (5.0-9.0)
[2024-09-11 18:55] LABS: Calcium Oxalate Crystals Urine Present /hpf
== END 2024-09-11 09:29 | disposition home or self-care (01) ==
PROVIDERS: PCP Nurse Practitioner Adult Health; Visit Provider Nurse Practitioner Adult Health
DX: R39.9 Unspecified symptoms and signs involving the genitourinary system (principal)
CPT/HCPCS: 81001; 87077; 87086; 87186

== ENCOUNTER 2024-12-22 06:34 | Outpatient (CLI) | payer MEDICARE, SELFPAY ==
--- OUTSIDE RECORDS SUMMARY | 2024-12-22 06:37 | XMS_ITS | Clinical Summary ---
Author Organization [facility] Address [address] [place] [address] Care Team Providers Care Special Education Science Teacher Name Role Phone Unavailable Primary Care Provider [...] 4:00 AM CDT Height 157.5 cm (5' 2) 06/22/2021 11:42 AM CDT Body Mass Index 40.97 06/22/2021 11:42 AM CDT Plan of Treatment Health Maintenance Due Date Last Done Comments CT Colonography 1956 Colonoscopy 1956 Colorectal Cancer Screening 1956 FIT-DNA (Cologuard) 1956 FIT 1956 FOBT 1956 Sigmoidoscopy 1956 Annual Visit Topic 1957 Hepatitis C Screening 1974 DTaP/Tdap/Td Vaccines (1 - Tdap) 06/19/1975 Mammogram 1996 Pneumococcal Vaccine: 65+ Ye ars (1 of 2 - PCV) 2006 HIB Vaccines Aged Out No longer eligi ble based on patient's age to complete this topic HPV Vaccines Aged Out No longer eligi ble based on patient's age to complete this topic Hepatitis A Vaccines Aged Out No long er eligible based on patient's age to complete this topic Hepatitis B Vaccines Aged Out No long er eligible based on patient's age to complete this topic IPV Vaccines Aged Out No longer eligi ble based on patient's age to complete this topic Meningococcal Vaccine Aged Out No lilo kirsten eligible based on patient's age to complete this topic Advance Directives * Full Resuscitation (Latest Code Status on File) Date Activated Date Inactivated Comments 06/21/2021 12:48 PM 07/04/2021 4:08 PM
--- OUTSIDE RECORDS SUMMARY | 2024-12-22 06:37 | XMS_ITS | Clinical Summary ---
Author Organization [facility] A Address [address] [place] [address] Care Team Providers Care Industrial Eng Name Role Phone Halle Arellano NP Primary Care Provider [phone] Allergies Active Allergy Reactions Criticality Noted Date Comments Unclassified Drug Other (See comments) 08/27/19 19 STEROIDS give her roid rage Medications benzonatate (TESSALON) 200 mg capsuleIndications :Lower respiratory infection Take 1 capsule (200 mg total) by mouth 3 (three) times a day as needed for cough 30 capsule 5 Active albuterol HFA (PROVENTIL HFA,VENTOLIN HFA,PROAIR HFA) 90 mcg/actuation inhalerIndications :Lower respiratory infection Inhale 2 puffs every 4 (four) hours as needed for wheezing or shortness of breath 18 g 5 Active inhalational spacing device (Aerochamber MV) spacerIndications: Lower respiratory infection Use with albuterol inhaler 1 each 5 Active ondansetron ODT (ZOFRAN-ODT) 4 mg disintegrating tabletIndications: Nausea and vomiting, unspecified vomiting type Take 1 tablet (4 mg total) by mouth every 8 (eight) hours as needed for nausea or vomiting 12 tablet 5 Active fluticasone propionate (FLOVENT HFA) 110 mcg/actuation inhaler Inhale 1 puff 2 (two) times a day Rinse mouth with water after use. Do not swallow. 1 each 5 Active HYDROcodone-acetam inophen (NORCO) 5-325 mg per tabletIndications: Pain Take 1-2 tablets by mouth every 4 (four) hours as needed for pain Do not exceed 8 tablets/day. 20 tablet 5 Active naloxone (NARCAN) 4 mg/actuation spray,non-aerosolI ndications:Opiate- Induced Respiratory Depression Administer 1 spray into affected nostril(s) as needed for opioid reversal 1 each [address] (PROTONIX) 40 mg EC tablet Take 1 tablet (40 mg total) by mouth daily Active citalopram (CeleXA) 20 mg tablet Take 1 tablet (20 mg total) by mouth daily Active metFORMIN XR (GLUCOPHAGE XR) 500 mg 24 hr tablet Take 1 tablet (500 mg total) by mouth nightly Active carvediloL (COREG) 3.125 mg tablet Take 1 tablet (3.125 mg total) by mouth 2 (two) times a day with meals Active sacubitriL-valsart an (ENTRESTO) 24-26 mg tabletIndications: chronic heart failure Take 1 tablet by mouth 2 (two) times a day Active doxazosin (CARDURA) 4 mg tablet Take 1 tablet (4 mg total) by mouth daily Active atorvastatin (LIPITOR) 40 mg tablet Take 1 tablet (40 mg total) by mouth nightly Active furosemide (LASIX) 20 mg tablet Take 1 tablet (20 mg total) by mouth daily Active montelukast (SINGULAIR) 10 mg tablet Take 1 tablet (10 mg total) by mouth nightly Active gabapentin (NEURONTIN) 600 mg tablet Take 1 tablet (600 mg total) by mouth nightly Active melatonin 10 mg tablet Take 1 tablet (10 mg total) by mouth nightly Active ascorbic acid, vitamin C, 125 mg tablet,chewable Take 2 tablets by mouth daily Active bacillus-protease- amylas-lipas 1 billion cell- 30,000 unit capsule Take 1 capsule by mouth daily Active levothyroxine (SYNTHROID) 88 mcg tablet Take 1 tablet (88 mcg total) by mouth organ tuner before breakfast Active warfarin (COUMADIN) 5 mg tablet Take 1 tablet (5 mg total) by mouth daily Active busPIRone (BUSPAR) 5 mg tabletIndications: Generalized Anxiety Disorder Take 1 tablet (5 mg total) by mouth nightly Active aspirin 81 mg chewable tablet Take 1 tablet (81 mg total) by mouth daily 30 tablet 11 04/27/ 026 Active benzonatate (TESSALON) 100 mg capsuleIndications :Cough Take 1 capsule (100 mg total) by mouth every 8 (eight) hours 21 capsule Active Active Problems Problem Noted Date Diagnosed Date Cardiomyopathy, ischemic 10/20/2024 Hx of CABG 08/18/2024 S/P AVR 08/18/2024 COPD exacerbation 07/08/2024 Aspiration pneumonia of left lower lobe, unspecified aspiration pneumonia type 07/07/2024 Thyroid disease 06/27/2024 HTN (hypertension) 06/27/2024 Depression 06/27/2024 Anxiety 06/27/2024 Respiratory failure 06/21/2021 Simple endometrial hyperplasia without atypia Postmenopausal bleeding 08/26/2018 Hypothyroidism 06/30/2008 Encounters Date Type Department Care Team Description 11/18/2024 12:18 PM CDT - 11/18/2024 12:19 PM CDT Emergency [facility] Emergency Department [address] [place] [address] Upper respiratory tract infection, unspecified type (Primary Dx); Acute cough Discharge Disposition: Discharge to home or self care 10/20/2024 2:30 PM CDT Office Visit [facility] at [address] [place] [id number] Giovanny Montes MD Cardiomyopathy, ischemic (Primary Dx); Primary hypertension; S/P AVR; Hx of CABG 10/03/2024 1:23 PM CDT - 10/03/2024 11:59 PM CDT Hospital Encounter [facility] Cardiology [address] [place] [address] Hx of CABG Discharge Disposition: Discharge to home or self care from Last 3 Months Social History Tobacco Use Types Packs/Day Years Used Date Smoking Tobacco: Never Smokeless Tobacco: Never Tobacco Cessation:Counseling Given: Not Answered [facility] Utilities Answer Date Recorded In the past 12 months has [employer], gas, oil, or water [employer] threatened to shut off services in your home? No 07/08/2024 Social Connection and Isolation Panel Answer Date Recorded In a typical week, how many times do you talk on the phone with family, friends, or neighbors? More than three times a week 07/08/2024 How often do you get togethe r with friends or relatives? More than three times a week 07/08/2024 How often do you attend chur ch or shinto services? More than 4 times per year 07/08/2024 Do you belong to any clubs o r organizations such as holiness groups, unions, fraternal or athletic groups, or school groups? Yes 07/08/2024 How often do you attend meet ings of the clubs or organizations you belong to? More than 4 times per year 07/08/2024 Are you , , di vorced, , never , or living with a partner? 07/08/2024 AUDIT-C Answer Date Recorded Q1: How often do you have a drink containing alcohol? Never 07/07/2024 Q2: How many drinks containi ng alcohol do you have on a typical day when you are drinking? Patient does not drink Q3: How often do you have si x or more drinks on one occasion? Never 07/07/2024 Overall Financial Resource Strain (CARDIA) Answe r Date Recorded How hard is it for you to pa y for the very basics like food, housing, medical care, and heating? Somewhat hard 07/08/2024 Hunger Vital Sign Answer Date Recorded Within the past 12 months, y ou worried that your food would run out before you got the money to buy more. Sometimes true Within the past 12 months, t he food you bought just didn't last and you didn't have money to get more. Sometimes true PRAPARE - Transportation Answer Date Re corded In the past 12 months, has l ack of transportation kept you from medical appointments or from getting medications? No 06/18 In the past 12 months, has l ack of transportation kept you from meetings, work, or from getting things needed for daily living? No 07/08/2024 Housing Stability Vital Sign Answer Juno e Recorded In the last 12 months, was t here a time when you were not able to pay the mortgage or rent on time? No 07/08/2024 In the past 12 months, how m any times have you moved where you were living? 0 07/08/2024 At [facility] time [facility] the [facility] were you homeless or living in a [facility] (including now)? No 07/08/2024 Personal Safety Answer Date Recorded Have you ever been in or are you currently in a harmful physical or emotional relationship or is someone making you feel afraid or unsafe? 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 Gender Identity Not on file Sexual Orientation Not on file Obstetrics History Last Filed Vital Signs Vital Sign Reading Time Taken Comments Blood Pressure 160/99 11/18/2024 12:16 PM CDT Pulse 88 11/18/2024 12:16 PM CDT Temperature 36.2 C (97.1 F) 11/18/2024 10:02 AM CDT Respiratory Rate 19 11/18/2024 12:16 PM CDT Oxygen Saturation 98% 11/18/2024 12:16 PM CDT Inhaled Oxygen Concentration - - Weight 104.3 kg (230 lb) 11/18/2024 10:02 AM CDT Height 157.5 cm (5' 2) 11/18/2024 10:02 AM CDT Body Mass Index 42.07 11/18/2024 10:02 AM CDT Plan of Treatment Health Maintenance Due Date Last Done Comments Albumin Creatinine Ratio, Urine 1955 Breast Cancer Screening-Mammogram 1955 Colon Cancer Screening-Colonoscopy 1955 Depression Screening 1955 Hepatitis C Screening 1955 Osteoporosis Screening-Bone Density Scan 1955 Dilated Eye Exam 1955 Foot Exam 1955 DTaP/Tdap/Td Vaccine (1 - Tdap) 06/19/1967 Hepatitis B Screening 1974 Well Visit 65+ 2021 Zoster Vaccine (2 of 3) 06/13/2022 04/18/2022 Pneumococcal vaccine 65+ (2 of 2 - PCV) 09/21/2022 09/21/2021 Covid-19 Vaccine (3 - 2024-2 6 season) 2024 09/01/2020, 07/09/2020 Influenza Vaccine (#1) 2024 Hemoglobin A1C 01/07/2025 07/08/2024 Lipid Panel 07/08/2025 07/08/2024 Fall Risk Assessment 07/12/2025 07/12/2024 eGFR 07/14/2025 07/14/2024, 06/18, 07/11/2024, Additional history exists Procedures Procedure Name Priority Date/Time Associated Diagnosis Comments XR CHEST PA LATERAL 2 VIEWS ED 11/18/2024 10:59 AM CDT INFLUENZA A/B, RSV, AND COVID-19 PCR STAT 11/18/2024 10:06 AM CDT TRANSTHORACIC ECHO (TTE) LIMITED/FOLLOW UP WO DOPPLER/CF WO CONTRAST Routine 10/03/2024 2:05 PM CDT Hx of CABG EGFR Routine 07/14/2024 11:26 AM CDT Elevated liver enzymes HEMOGLOBIN A1C Routine 07/08/2024 9:08 AM CDT LIPID PANEL Routine 07/08/2024 9:08 AM CDT from Last 3 Months or Most Recently Relevant to Health Maintenance Results * XR Chest Pa Lateral 2 Views (11/18/2024 10:59 AM CDT) Anatomical Region Laterality Modality Body, Chest N/A Computed Radiogr aphy 11/18/2024 11:1 4 AM CDT Narrative 11/18/2024 11:16 AM CDT EXAM DESCRIPTION: XR CHEST PA LATERAL 2 VIEWS REASON FOR STUDY: cough Pt to ED for c/o cough and congestion x 1 week. Pt reports her grandson was sick and now her and a few family members are all sick with the same symptoms. Pt reports she is coughing up green mucus. TECHNIQUE: Frontal and lateral radiographic view(s) of the chest. COMPARISON: 07/07/2024 FINDINGS: The heart, mediastinum, and pulmonary vasculature grossly stable. Postsurgical changes with midline sternotomy wires and cardiac valve prosthesis are noted. There are mild atherosclerotic changes of the aorta. There is no definite evidence of a pneumothorax. There is no definite evidence of focal consolidation or pleural effusion. The osseous structures are acutely grossly stable. IMPRESSION: 1. No acute cardiopulmonary abnormality. THIS IS AN ELECTRONICALLY VERIFIED FINAL REPORT 11/18/2024 11:16 AM - Electronically signed by Francisca Morales D.O. PS: PS Report ID: [id number] Reading Location: [place] [address] Procedure Note Francisca Morales, DO - 11/18/2024 EXAM DESCRIPTION: XR CHEST PA LATERAL 2 VIEWS REASON FOR STUDY: cough Pt to ED for c/o cough and congestion x 1 week. Pt reports her grandsonwas sick and now her and a few family members are all sick with the samesymptoms. Pt reports she is coughing up green mucus. TECHNIQUE: Frontal and lateral radiographic view(s) of the chest. COMPARISON: 07/07/2024 FINDINGS: The heart, mediastinum, and pulmonary vasculature grossly stable. Postsurgical changes with midline sternotomy wires and cardiac valve prosthesis are noted. There are mild atherosclerotic changes of theaorta. There is no definite evidence of a pneumothorax. There is no definite evidence of focal consolidation or pleural effusion. The osseous structures are acutely grossly stable. IMPRESSION: 1. No acute cardiopulmonary abnormality. THIS IS AN ELECTRONICALLY VERIFIED FINAL REPORT 11/18/2024 11:16 AM - Electronically signed by Francisca Morales D.O. PS: PS Report ID: [id number] Reading Location: [place] [address] us Chris [facility] IMG XR PROCEDURE S Final Result * Influenza A/B, RSV, and COVID-19 PCR Nasopharyngeal (11/18/2024 10:06 AM CDT) COVID-19 RNA Negative Negative Influenza A RNA Negative Negative [facility]) Influenza B RNA Negative Negative [facility]) RSV RNA Negative Negative [facility]) Comment: Interpretive data: Testing performed by [facility]. This test is performed using the Cepheid Xpert Xpress CoV-2/Flu/RSV plus assay. This is a multiplex, real- time reverse transcriptase PCR assay intended for the qualitative detection of nucleic acid from SARS-CoV-2, influenza A, influenza B, and respiratory syncytial virus. This assay has been cleared by the [place] Food and Drug administration. The performance characteristics have been verified by the [facility]. Results must be considered in the clinical context, and a negative result does not rule out infection. Interpretive Data last revised 2023 Nasopharyngeal 11/18/2024 10 :06 AM CDT 11/18/2024 11:17 AM CDT Narrative [facility] ([place]) - 11/18/2024 11:56 AM CDT Is the Patient experiencing symptoms consistent with COVID?->Yes us Chris [facility] MICROBIOLOGY - GENERAL ORDERABLES Final Result [facility]EXTERKATIE REYES ([place]) 1 [facility] Department [place] [address] * TRANSTHORACIC ECHO (TTE) LIMITED/FOLLOW UP WO DOPPLER/CF WO CONTRAST (10/03/2024 2:05 PM CDT) Estimated EF 40 % CONS SCIMAGE Anatomical Region Laterality Modality Ultrasound 10/03/2024 1:53 PM CDT Narrative 10/03/2024 3:44 PM CDT [address] [address] Limited Echocardiogram Report Patient Name: SHAKIRA REYNOLDS : 1955 Study Date: 10/03/2024 1:53:51 PM Gender: F Tech: AA Location: echo room 2 Ref Provider: GIOVANNY MONTES Height(Cm): BSA: Weight(Kg): Quality: Good PROCEDURES: Echocardiographic Report: Limited transthoracic echocardiogram with 2D and M-Mode. INDICATIONS: f/u heart function and Z95.1 Presence of aortocoronary bypass graft. MEASUREMENTS: 2D/MM Value Range Estimated EF 40 to 45 % 2D/MM Value Range - FINDINGS: Aorta: Normal aortic root. Left Ventricle: Moderate concentric left ventricular hypertrophy. Moderate enlargement of left ventricle cavity. Mild global left ventricular systolic dysfunction. Ejection Fraction is estimated to be 40 to 45 %. These segments of the LV are akinetic: apical segment and apical septum segment. Left Atrium: There is moderate enlargement of left atrium. Right Ventricle: Normal right ventricular size. Normal right ventricular systolic function. Right Atrium: The right atrium is normal in size. Aortic Valve: Aortic valve not well visualized. Mitral Valve: Mild mitral annular calcification. Tricuspid Valve: Normal structure of the tricuspid valve. Pericardium: Normal pericardium with no significant pericardial effusion. CONCLUSIONS: Moderate concentric left ventricular hypertrophy. Moderate enlargement of left ventricle cavity. Mild global left ventricular systolic dysfunction. Ejection Fraction is estimated to be 40 to 45 %. These segments of the LV are akinetic: apical segment and apical septum segment. There is moderate enlargement of left atrium. Mild mitral annular calcification. Aortic valve not well visualized. Normal structure of the tricuspid valve. Technically difficult study with limited views. Electronically Signed By: Dr Jose Correa 10/03/2024 3:44:01 PM CDT Procedure Note Jose Correa MD - 10/03/[address] [place] [address] Limited Echocardiogram Report Patient Name: SHAKIRA REYNOLDS : 1955 Study Date: 10/03/2024 1:53:51 PM Gender: F Tech: AA Location: echo room 2 Ref Provider: GIOVANNY MONTES Height(Cm): BSA: Weight(Kg): Quality: Good PROCEDURES: Echocardiographic Report: Limited transthoracic echocardiogram with 2D and M-Mode. INDICATIONS: f/u heart function and Z95.1 Presence of aortocoronary bypass graft. MEASUREMENTS: 2D/MM Value Range Estimated EF 40 to 45 % 2D/MM Value Range - FINDINGS: Aorta: Normal aortic root. Left Ventricle: Moderate concentric left ventricular hypertrophy. Moderate enlargement ofleft ventricle cavity. Mild global left ventricular systolic dysfunction. EjectionFraction is estimated to be 40 to 45 %. These segments of the LV are akinetic: apical segmentand apical septum segment. Left Atrium: There is moderate enlargement of left atrium. Right Ventricle: Normal right ventricular size. Normal right ventricular systolicfunction. Right Atrium: The right atrium is normal in size. Aortic Valve: Aortic valve not well visualized. Mitral Valve: Mild mitral annular calcification. Tricuspid Valve: Normal structure of the tricuspid valve. Pericardium: Normal pericardium with no significant pericardial effusion. CONCLUSIONS: Moderate concentric left ventricular hypertrophy. Moderate enlargement ofleft ventricle cavity. Mild global left ventricular systolic dysfunction. EjectionFraction is estimated to be 40 to 45 %. These segments of the LV are akinetic: apical segmentand apical septum segment. There is moderate enlargement of left atrium. Mild mitral annular calcification. Aortic valve not well visualized. Normal structure of the tricuspid valve. Technically difficult study with limited views. Electronically Signed By: Dr Jose Correa 10/03/2024 3:44:01 PM CDT Giovanny Montes MD CV ECHO PROCEDURES Final Result * eGFR (07/14/2024 11:26 AM CDT) eGFR >90 >=60 mL/min/1. 73 m2 Comment: Interpretive Data Reference Interval Normal >/= 90 mL/min/1.73m2 Mildly decreased* 60 - 89 mL/min/1.73m2 Mildly to moderately decreased 45 - 59 mL/min/1.73m2 Moderately to severely decreased 30 - 44 mL/min/1.73m2 Severely decreased 15 - 29 mL/min/1.73m2 Kidney Failure < 15 mL/min/1.73m2 *Relative to young adult level Estimated glomerular filtration rate is determined by the 2020 CKD-EPI equation recommended by the National Kidney Foundation (A Unifying Approach to GFR Estimation: Recommendations of the NKF-ASK Task Force on Reassessing the Inclusion of Race in Diagnosing Kidney Disease, JASN 2020). The CKD-EPI equation should not be used for patients with unstable renal function and has not been validated in children and those over 70. Current interpretive data was last reviewed 2021. Blood 07/14/2024 11:2 6 AM CDT 07/14/2024 11:46 AM CDT us Evie Shah MD LAB BLOOD ORDERABLES Cathy l Result Performing Organization Address City/[facility]/ZIP Co de Phone Number DEXTERKATIE REYES ([place]) [address] [place] [address] [place] [address] * (ABNORMAL) Hemoglobin A1c (07/08/2024 9:08 AM CDT) Hgb A1C 7.1(H) 4.0 - 5.6 % Estimated Average Glucose 157 mg/dL [facility] ([place]) Comment: The ADA recommends reporting an estimated Average Glucose (eAG) with all Hemoglobin A1c results using the equation derived from a study of 507 normal and diabetic adults. Minority populations were underrepresented and children were not included. (Diabetes Care 31:1796-2571, 2008). The eAG is not equivalent to a fasting glucose. Blood 07/08/2024 9:08 AM CDT 07/08/2024 9:11 AM CDT us Jessika Chris MD LAB BLOOD ORDERABLES Fi nal Result [facility] RE[facility] ([place]) 1 [facility] Department [place] [address] * Lipid panel (07/08/2024 9:08 AM CDT) Cholesterol 122 30 - 199 mg/dL Comment: Interpretive Data Ages < or = 19 years Acceptable: <170 mg/dL Borderline high: 170-199 mg/dL High: >or= 200 mg/dL Ages > or = 20 years Desirable: <200 mg/dL Borderline high: 200-239 mg/dL High: >or= 240 mg/dL Literature References: 1. Expert Panel on Integrated Guidelines for Cardiovascular Health and Risk Reduction in Children and Adolescents. Pediatrics 2011;128:S213 2. NCEP Expert Panel. Circulation 2004;110:227 Current Interpretive Data was last revised on 2017. Triglycerides 86 <=149 mg/dL [facility] ([place]) Comment: Interpretive Data Ages < or = 9 years Acceptable: <75 mg/dL Borderline high: 75-99 mg/dL High: >or= 100 mg/dL Ages 10 to 20 years Acceptable: <90 mg/dL Borderline high: 90-129 mg/dL High: >or= 130 mg/dL Ages > or = 20 years Desirable: <150 mg/dL Borderline high: 150-199 mg/dL High: 200-499 mg/dL Very high: >or= 499 mg/dL Literature References: 1. Expert Panel on Integrated Guidelines for Cardiovascular Health and Risk Reduction in Children and Adolescents. Pediatrics 2011;128:S213 2. NCEP Expert Panel. Circulation 2004;110:227 Current Interpretive Data was last revised on 2017. HDL 47 >=40 mg/dL CLIFF [facility] ([place]) Comment: Interpretive Data Ages < or = 19 years Acceptable: >45 mg/dL Borderline low: 40-45 mg/dL Low: <40 mg/dL Ages > or = 20 years Desirable: >or= 60 mg/dL Low: <40 mg/dL Literature References: 1. Expert Panel on Integrated Guidelines for Cardiovascular Health and Risk Reduction in Children and Adolescents. Pediatrics 2011;128:S213 2. NCEP Expert Panel. Circulation 2004;110:227 Current Interpretive Data was last revised on 2017. LDL, calculated 58 <=129 mg/dL [facility] ([place]) Comment: Interpretive Data Ages < or = 19 years Acceptable: <110 mg/dL Borderline high: 110-129 mg/dL High: >or= 130 mg/dL Ages > or = 20 years Optimal: <100 mg/dL Near optimal: 100-129 mg/dL Borderline high: 130-159 mg/dL High: >160 mg/dL Calculated using the Edmund LDL-C estimating equation. This equation was implemented on 2023. Prior to this date LDL-C was estimated using the Friedewald equation. Literature References: 1. Expert Panel on Integrated Guidelines for Cardiovascular Health and Risk Reduction in Children and Adolescents. Pediatrics 2011;128:S213 2. NCEP Expert Panel. Circulation 2004;110:227 3. Edmund Stewart et al. CHAO Cardiol. 2020 July 17;5(5):540-548. doi: 10.1001/jamacardio.2020.0013 Current Interpretive Data was last revised on 2023. Non-HDL Cholesterol 75 mg/dL [facility] ([place]) Comment: Interpretive Data Ages < or = 19 years Acceptable: <120 mg/dL Borderline high: 120-144 mg/dL High: >145 mg/dL Ages > or = 20 years When triglycerides are >200 mg/dL, Non-HDL cholesterol is a secondary target of therapy with treatment goals that are 30 mg/dL greater than the LDL cholesterol target. Literature References: 1. Expert Panel on Integrated Guidelines for Cardiovascular Health and Risk Reduction in Children and Adolescents. Pediatrics 2011;128:S213 2. NCEP Expert Panel. Circulation 2004;110:227 Current Interpretive Data was last revised on 2017. Chol/HDL ratio 3 BELKYS RE[facility] ([place]) Blood 07/08/2024 9:08 AM CDT 07/08/2024 9:11 AM CDT us Jessika Chris MD LAB BLOOD ORDERABLES nal Result [facility] RE[facility] ([place]) 1 [facility] Department [place] [address] from Last 3 Months or Most Recently Relevant to Health Maintenance Insurance [employer]IC[employer] PPO [employer] MEDIC[employer] PPO Advance Directives For more information, please contact: [phone] * Full Code (Latest Code Status on File) Date Activated Date Inactivated Comments 07/07/2024 7:23 PM 07/12/2024 6:04 PM Care Teams Industrial Eng Relationship Specialty Start Date End Date Halle Arellano NP [address] [place] [address] PCP - General Nurse Practitioner 07/07/24
[2024-12-22 18:31] LABS: Hematocrit 38.5 % (37.0-47.0); Hemoglobin 12.3 g/dL (12.0-15.0); Mean Corpuscular HGB Conc 31.9 g/dl (32-36); Mean Corpuscular Hemoglobin 31.6 pg (26-34); Mean Corpuscular Volume 99.0 fl (80-100); Platelet Count Result 185 k/mm3 (150-375); Red Blood Count 3.89 M/mm3 (4.2-5.4); White Blood Count 6.1 K/mm3 (4.5-10.0)
[2024-12-22 18:36] LABS: Alanine Aminotransferase 32 U/L (6-35); Albumin Level 3.9 g/dL (3.5-5.1); Alkaline Phosphatase 73 U/L (38-126); Anion Gap 0 mmol/L (4-12); Aspartate Amino Transferase 61 U/L (14-36); Bilirubin,Total 1.1 mg/dL (0.2-1.3); Blood Urea Nitrogen 14 mg/dL (7-17); Calcium 9.5 mg/dL (8.4-10.2); Carbon Dioxide 29 mmol/L (22-30); Chloride 98 mmol/L (98-107); Cholesterol 109 mg/dL (0-200); Estimated Glomerular Filt Rate > 60; Glucose 162 mg/dL (65-110); HDL Direct 33 mg/dL; Potassium 4.2 mmol/L (3.4-5.0); Sodium 127 mmol/L (137-145); Total Protein 7.6 g/dL (6.3-8.2); Triglycerides 114 mg/dL (<150)
[2024-12-22 18:37] LABS: Hemoglobin A1C 7.4 % (<5.7)
[2024-12-22 18:47] LABS: MALB Creatinine Ratio 6.6 mg/g (0-30)
[2024-12-22 19:12] LABS: Thyroid Stimulating Hormone 6.350 uIU/mL (0.465-4.680)
[2024-12-22 19:31] LABS: Vitamin B12 336.0 pg/mL (239-931)
== END 2024-12-22 06:35 | disposition home or self-care (01) ==
PROVIDERS: PCP Nurse Practitioner Adult Health; Visit Provider Nurse Practitioner Adult Health
DX: E11.9 Type 2 diabetes mellitus without complications (principal); E03.9 Hypothyroidism, unspecified; I10 Essential (primary) hypertension
CPT/HCPCS: 36415; 80053; 80061; 82043; 82565; 82607; 83036; 84443; 85027

== ENCOUNTER 2024-12-29 08:27 | Outpatient (CLI) | payer MEDICARE, SELFPAY ==
--- OUTSIDE RECORDS SUMMARY | 2024-12-29 08:38 | XMS_ITS | Clinical Summary ---
Author Organization [facility] Medical Office Building A Address [address] [place] [address] Care Team Providers Care Terrazzo Installer Name Role Phone Halle Arellano NP Primary Care Provider [phone] Allergies Active Allergy Reactions Criticality Noted Date [...] 1 tablet (88 mcg total) by mouth cst before breakfast Active warfarin (COUMADIN) 5 mg [...] CDT - 11/18/2024 12:19 PM CDT Emergency [facility] Emergency Department [address] [place] [address] Upper respiratory tract infection, unspecified type (Primary Dx); Acute cough Discharge Disposition: Discharge to home or self care 10/20/2024 2:30 PM CDT Office Visit [employer] [facility] Advisor at [address] [place] [id number] Giovanny Montes MD Cardiomyopathy, ischemic (Primary Dx); Primary hypertension; S/P AVR; Hx of CABG 10/03/2024 1:23 PM CDT - 10/03/2024 11:59 PM CDT Hospital Encounter [facility] Cardiology [address] [place] [address] Hx of CABG Discharge Disposition: Discharge to home or self care from Last 3 Months Social History Tobacco Use Types Packs/Day Years Used Date Smoking Tobacco: Never Smokeless Tobacco: Never Tobacco Cessation:Counseling Given: Not Answered [facility] Utilities Answer Date Recorded In the past 12 months has [employer], gas, oil, or water [employer] threatened to shut off services in your [...] often do you attend chur ch or confucianist services? More than 4 times per year 07/08/2024 Do you belong to any clubs o r organizations such as jainism groups, unions, fraternal or athletic groups, or [...] any time in the past 12 m [facility], were you homeless or living in a care home (including now)? No 07/08/2024 Personal Safety Answer Date Recorded Have you ever been in or are you currently in a harmful physical or emotional relationship or is someone making you feel afraid or unsafe? 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 PS: PS Report ID: [id number] Reading Location: [place] [address] Procedure Note Francisca Morales, DO - 11/18/2024 [...] Francisca Morales D.O. PS: PS Report ID: [id number] Reading Location: [place] [address] us Chris COLUNGA IMG XR PROCEDURE S Final Result * Influenza A/B, RSV, and COVID-19 PCR Nasopharyngeal (11/18/2024 10:06 AM CDT) COVID-19 RNA Negative Negative Influenza A RNA Negative Negative [facility]) Influenza B RNA Negative Negative [facility]) RSV RNA Negative Negative [facility] ([place]) Comment: Interpretive data: Testing performed by [facility]. This test is performed using the [employer] Xpert Xpress CoV-2/Flu/RSV plus assay. This is a multiplex, real- time reverse transcriptase PCR assay intended for the qualitative detection of nucleic acid from SARS-CoV-2, influenza A, influenza B, and respiratory syncytial virus. This assay has been cleared by the [place] Food and Drug administration. The performance characteristics have been verified by the [facility]. Results must be considered in the clinical context, and a negative result does not rule out infection. Interpretive Data last revised 2023 Nasopharyngeal 11/18/2024 10 :06 AM CDT 11/18/2024 11:17 AM CDT Narrative [facility] ([place]) - 11/18/2024 11:56 AM CDT Is the Patient experiencing symptoms consistent with COVID?->Yes us Chris COLUNGA LAB MICROBIOLOGY - GENERAL ORDERABLES Final Result [facility] ([place]) 1 [facility] Department [place] [address] * TRANSTHORACIC ECHO (TTE) LIMITED/FOLLOW UP WO DOPPLER/CF WO CONTRAST (10/03/2024 2:05 PM CDT) Estimated EF 40 % CONS SCIMAGE Anatomical Region Laterality Modality Ultrasound 10/03/2024 1:53 PM CDT Narrative 10/03/2024 3:[address] PM CDT [address] [address] Limited Echocardiogram Report Patient Name: SHAKIRA REYNOLDS [...] Procedure Note Jose Correa MD - 10/03/[address] [place] [address] Limited Echocardiogram Report Patient Name: SHAKIRA REYNOLDS [...] ORDERABLES Cathy l Result Performing Organization Address City/[facility]/ZIP Co de Phone Number [facility]AT[facility] RE[facility] ([place]) [address] [place] [address] Department [place] [address] * (ABNORMAL) Hemoglobin A1c (07/08/2024 9:08 AM CDT) Hgb A1C 7.1(H) 4.0 - 5.6 % Estimated Average Glucose 157 mg/dL [facility] ([place]) Comment: The ADA recommends reporting an estimated Average Glucose (eAG) with all Hemoglobin A1c results using the equation derived from a study of 507 normal and diabetic adults. Minority populations were underrepresented and children were not included. (Diabetes Care 31:9636-1951, 2008). The eAG is not equivalent to a fasting glucose. Blood 07/08/2024 9:08 AM CDT 07/08/2024 9:11 AM CDT us Jessika Chris MD LAB BLOOD ORDERABLES Fi nal Result [facility] ([place]) 1 [facility] Department [place] [address] * Lipid panel (07/08/2024 9:08 AM CDT) [...] ORDERABLES nal Result [facility] ([place]) 1 [facility] Department [place] [address] from Last 3 Months or Most Recently Relevant to Health Maintenance Insurance HU[employer] CHOICE MEDICARE PPO HU[employer] CHOICE MEDICARE PPO Advance Directives For more information, please contact: [phone] * Full Code (Latest Code Status on File) Date Activated Date Inactivated Comments 07/07/2024 7:23 PM 07/12/2024 6:04 PM Care Teams Terrazzo Installer Relationship Specialty Start Date End Date Halle Arellano NP [address] [place] [address] PCP - General Nurse Practitioner 07/07/24
--- OUTSIDE RECORDS SUMMARY | 2024-12-29 08:38 | XMS_ITS | Clinical Summary ---
Author Organization [facility] Address [address] [place] [address] Care Team Providers Care Maintenance Groundman Name Role Phone Unavailable Primary Care Provider [...]
[2024-12-29 19:37] LABS: Anion Gap 8 mmol/L (4-12); Blood Urea Nitrogen 11 mg/dL (7-17); Calcium 9.8 mg/dL (8.4-10.2); Carbon Dioxide 30 mmol/L (22-30); Chloride 96 mmol/L (98-107); Estimated Glomerular Filt Rate > 60; Glucose 181 mg/dL (65-110); Potassium 4.6 mmol/L (3.4-5.0); Sodium 134 mmol/L (137-145)
== END 2024-12-29 08:28 | disposition home or self-care (01) ==
LOC: ANHBWCLAB 08:28
PROVIDERS: PCP Nurse Practitioner Adult Health; Visit Provider Nurse Practitioner Adult Health
DX: E87.1 Hypo-osmolality and hyponatremia (principal)
CPT/HCPCS: 36415; 80048

== ENCOUNTER 2025-01-08 10:59 | Outpatient (CLI) | payer MEDICARE, SELFPAY ==
--- OUTSIDE RECORDS SUMMARY | 2025-01-08 12:08 | XMS_ITS | Clinical Summary ---
Author Organization [facility] Address [address] [place] [address] Care Team Providers Care Pc Tech Name Role Phone Unavailable Primary Care Provider [...]
--- OUTSIDE RECORDS SUMMARY | 2025-01-08 12:09 | XMS_ITS | Clinical Summary ---
Author Organization [facility] Medical Office Building A Address [address] [place] [address] Care Team Providers Care Jboss Developer Name Role Phone Halle Arellano NP Primary Care Provider [phone] Allergies Active Allergy Reactions Criticality Noted Date Comments Unclassified Drug Other (See comments) 08/27/19 19 STEROIDS give her roid rage Medications benzonatate (TESSALON) 200 mg capsuleIndications :Lower respiratory infection Take 1 capsule (200 mg total) by mouth 3 (three) times a day as needed for cough 30 capsule 06/28/19 25 Active albuterol HFA (PROVENTIL HFA,VENTOLIN HFA,PROAIR HFA) 90 mcg/actuation inhalerIndications :Lower respiratory infection Inhale 2 puffs every 4 (four) hours as needed for wheezing or shortness of breath 18 g 06/28/19 25 Active inhalational spacing device (Aerochamber MV) spacerIndications: Lower respiratory infection Use with albuterol inhaler 1 each 06/28/19 25 Active ondansetron ODT (ZOFRAN-ODT) 4 mg disintegrating tabletIndications: Nausea and vomiting, unspecified vomiting type Take 1 tablet (4 mg total) by mouth every 8 (eight) hours as needed for nausea or vomiting 12 tablet 06/28/19 25 Active fluticasone propionate (FLOVENT HFA) 110 mcg/actuation inhaler Inhale 1 puff 2 (two) times a day Rinse mouth with water after use. Do not swallow. 1 each 06/29/19 25 Active HYDROcodone-acetam inophen (NORCO) 5-325 mg per tabletIndications: Pain Take 1-2 tablets by mouth every 4 (four) hours as needed for pain Do not exceed 8 tablets/day. 20 tablet 06/29/19 25 Active naloxone (NARCAN) 4 mg/actuation spray,non-aerosolI ndications:Opiate- Induced Respiratory Depression Administer 1 spray into affected nostril(s) as needed for opioid reversal 1 each 06/29/[address] (PROTONIX) 40 mg EC tablet Take 1 tablet (40 mg total) by mouth daily Active citalopram (CeleXA) 20 mg tablet Take 1 tablet (20 mg total) by mouth daily Active metFORMIN XR (GLUCOPHAGE XR) 500 mg 24 hr tablet Take 1 tablet (500 mg total) by mouth nightly Active carvediloL (COREG) 6.25 mg tablet Take 1 tablet (6.25 mg total) by mouth 2 (two) times [...] 1 tablet (88 mcg total) by mouth industrial laborer before breakfast Active warfarin (COUMADIN) 5 mg [...] mouth every 8 (eight) hours 21 capsule 11/19/19 Active FLUoxetine (PROzac) 40 mg capsule 12/30/19 Active multivitamin tablet Take 1 tablet by mouth daily Active Ozempic 0.25 mg or 0.5 mg (2 mg/3 mL) pen injector injection INJECT 0.25MG SUBCUTANEOUSLY ONCE A WEEK 12/19/19 Active Active Problems Problem Noted Date Diagnosed Date Nonrheumatic aortic (valve) stenosis 12/29/2024 Cardiomyopathy, ischemic 10/20/2024 Hx of CABG 08/18/2024 S/P AVR 08/18/2024 COPD exacerbation 07/08/2024 Aspiration pneumonia of left lower lobe, unspecified aspiration pneumonia type 07/07/2024 Thyroid disease 06/27/2024 HTN (hypertension) 06/27/2024 Depression 06/27/2024 Anxiety 06/27/2024 Respiratory failure 06/21/2021 Simple endometrial hyperplasia without atypia Postmenopausal bleeding 08/26/2018 Hypothyroidism 06/30/2008 Encounters Date Type Department Care Team Description 12/29/2024 1:15 PM CDT Office Visit [employer] V[employer] Installer at [address] [place] [phone] Giovanny Montes MD Cardiomyopathy, ischemic (Primary Dx); S/P AVR; Primary hypertension; Nonrheumatic aortic (valve) stenosis 12/29/2024 Telephone [employer] [facility] Installer at [address] [place] [phone] Solo Hall MA 12/29/2024 Telephone [employer] [facility] Installer at [address] [place] [address] Sool Hall MA 11/18/2024 12:18 PM CDT - 11/18/2024 12:19 PM CDT Emergency [facility] Emergency Department [address] [place] [address] Upper respiratory tract infection, unspecified type (Primary Dx); Acute cough Discharge Disposition: Discharge to home or self care 10/20/2024 2:30 PM CDT Office Visit [employer] V[employer] Installer at [address] [place] [phone] Giovanny Montes MD Cardiomyopathy, ischemic (Primary Dx); Primary hypertension; S/P AVR; Hx of CABG from Last 3 Months Social History Tobacco Use Types Packs/Day Years Used Date Smoking Tobacco: Never Smokeless Tobacco: Never Tobacco Cessation:Counseling Given: Not Answered [facility] Utilities Answer Date Recorded In the past 12 months has [employer], gas, oil, or water [employer] threatened to shut off services in your [...] week 07/08/2024 How often do you attend [employer] [place] or yarsanism services? More than 4 times per year 07/08/2024 Do you belong to any clubs o r organizations such as protestant groups, unions, fraternal or athletic groups, or [...] any time in the past 12 m [facility], were you homeless or living in a skilled nursing (including now)? No 07/08/2024 Personal Safety Answer Date Recorded Have you ever been in or are you currently in a harmful physical or emotional relationship or is someone making you feel afraid or unsafe? 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 Gender Identity Not on file Sexual Orientation Not on file Obstetrics History Last Filed Vital Signs Vital Sign Reading Time Taken Comments Blood Pressure 127/64 12/29/2024 1:26 PM CDT Pulse 75 12/29/2024 1:26 PM CDT Temperature 36.2 C (97.1 F) 11/18/2024 10:02 AM CDT Respiratory Rate 18 12/29/2024 1:26 PM CDT Oxygen Saturation 98% 11/18/2024 12:16 PM CDT Inhaled Oxygen Concentration - - Weight 106.6 kg (235 lb) 12/29/2024 1:26 PM CDT Height 157.5 cm (5' 2) 12/29/2024 1:26 PM CDT Body Mass Index 42.98 12/29/2024 1:26 PM CDT Plan of Treatment Health Maintenance Due [...] COVID-19 PCR STAT 11/18/2024 10:06 AM CDT EGFR Routine 07/14/2024 11:26 AM CDT Elevated [...] Francisca Morales D.O. PS: PS Report ID: [id number] Reading Location: [id number] Procedure Note Francisca Morales, DO - 11/18/2024 [...] Francisca Morales D.O. PS: PS Report ID: [id number] Reading Location: [id number] us Chris COLUNGA IMG XR PROCEDURE S Final Result * Influenza A/B, RSV, and COVID-19 PCR Nasopharyngeal (11/18/2024 10:06 AM CDT) Pathologist [facility] COVID-19 RNA Negative Negative Influenza A RNA Negative Negative [facility] ([place]) Influenza B [facility] Negative [facility] ([place]) RSV RNA Negative Negative [facility] ([place]) Comment: Interpretive data: Testing performed by [facility]. This test is performed using the [employer] Xpert Xpress CoV-2/Flu/RSV plus assay. This is a multiplex, real- time reverse transcriptase PCR assay intended for the qualitative detection of nucleic acid from SARS-CoV-2, influenza A, influenza B, and respiratory syncytial virus. This assay has been cleared by the [place] Food and Drug administration. The performance characteristics have been verified by the [facility]. Results must be considered in the clinical context, and a negative result does not rule out infection. Interpretive Data last revised 2023 Nasopharyngeal 11/18/2024 10 :06 AM CDT 11/18/2024 11:17 AM CDT Narrative [facility] ([place]) - 11/18/2024 11:56 AM CDT Is the Patient experiencing symptoms consistent with COVID?->Yes Chris COLUNGA LAB MICROBIOLOGY - GENERAL ORDERABLES Final Result [facility] ([place]) 1 [facility] [place] [address] * eGFR (07/14/2024 11:26 AM CDT) Pathologist [facility] eGFR >90 >=60 mL/min/1. 73 m2 Comment: [...] 6 AM CDT 07/14/2024 11:46 AM CDT Evie Shah MD LAB BLOOD ORDERABLES Cathy l Result Performing Organization Address City/[facility]/ZIP Co de Phone Number [facility] ([place]) [address] [place] [address] [place] [address] * (ABNORMAL) Hemoglobin A1c (07/08/2024 9:08 AM CDT) Hgb A1C 7.1(H) 4.0 - 5.6 % Estimated Average Glucose 157 mg/dL [facility] ([place]) Comment: The ADA recommends reporting an estimated Average Glucose (eAG) with all Hemoglobin A1c results using the equation derived from a study of 507 normal and diabetic adults. Minority populations were underrepresented and children were not included. (Diabetes Care 31:1477-8766, 2008). The eAG is not equivalent to a fasting glucose. Blood 07/08/2024 9:08 AM CDT 07/08/2024 9:11 AM CDT us Jessika Chris MD LAB BLOOD ORDERABLES Fi nal Result [facility] ([place]) 1 [facility] [place] [address] * Lipid panel (07/08/2024 9:08 AM CDT) [facility] Cholesterol 122 30 - 199 mg/dL Comment: [...] on 2017. HDL 47 >=40 mg/dL [facility] ([place]) Comment: Interpretive Data Ages < or [...] BLOOD ORDERABLES Fi nal Result [facility] ([place]) 1 [facility] [place] [address] from Last 3 Months or Most Recently Relevant to Health Maintenance Insurance [employer] CHOICE MEDICARE PPO HU[employer] CHOICE MEDICARE PPO [employer] CHOICE MEDICARE PPO Advance Directives For more information, please contact: [phone] * Full Code (Latest Code Status on File) Date Activated Date Inactivated Comments 07/07/2024 7:23 PM 07/12/2024 6:04 PM Care Teams Jboss Developer Relationship Specialty Start Date End Date Halle Arellano NP [address] [place] [address] PCP - General Nurse Practitioner 07/07/24
[2025-01-08 18:45] LABS: Add Urine Microscopic? YES; Appearance Urine Clear (Clear); Budding Yeast Urine Present /hpf; Glucose Urine UA Negative (Negative); Leukocyte Esterase Ur Trace LEU/UL (Negative); Need Manual Microscopic Reviewed; Nitrate Urine Negative (Negative); Non Pathogenic Casts 0-2; Specific Grav Ur 1.005 (1.001-1.035)
== END 2025-01-08 11:00 | disposition home or self-care (01) ==
LOC: ANHBWCLAB 11:00
PROVIDERS: PCP Nurse Practitioner Adult Health; Visit Provider Nurse Practitioner Adult Health
DX: R39.9 Unspecified symptoms and signs involving the genitourinary system (principal)
CPT/HCPCS: 81001; 87077; 87086; 87147; 87186